=== PATIENT | male | born 1980 | race African-American/Black ===

== ENCOUNTER 2019-05-23 15:22 | Emergency (ER) | payer OTHER ==
[2019-05-23 15:28] VITALS: BP 103/50; PULSE 74; RESP 18; TEMP 99.2
--- NOTE | 2019-05-23 15:35 | ED ---
Lower Extremity Injury HPI - General Chief Complaint: Extremity Injury, Lower Stated Complaint: Foot injury Time Seen by Provider: 05/23/19 15:31 Source: patient, RN notes reviewed Mode of arrival: ambulatory Limitations: no limitations - History of Present Illness Initial Comments: 38-year-old male presents emergency Department chief complaint of left foot pain. Patient states that he was moving some stuff and states P1 his left foot. Patient states that dropped from approximately couple feet up off the ground. Patient complains of severe left foot pain he was able to urinate but states it's very sore. Patient went to swelling no prior fractures no paresthesias. - Related Data Allergies Allergy/AdvReac Type Severity Reaction Status Date / Time No Known Allergies Allergy Verified 05/23/19 15:28 Review of Systems ROS Statement: Those systems with pertinent positive or pertinent negative responses have been documented in the HPI. ROS Other: All systems not noted in ROS Statement are negative. Past Medical History Past Medical History: No Reported History History of Any Multi-Drug Resistant Organisms: None Reported Past Surgical History: No Surgical Hx Reported Past Psychological History: No Psychological Hx Reported Smoking Status: Never smoker Past Alcohol Use History: None Reported Past Drug Use History: None Reported General Exam Limitations: no limitations General appearance: alert, in no apparent distress Head exam: Present: atraumatic, normocephalic, normal inspection Respiratory exam: Present: normal lung sounds bilaterally. Absent: respiratory distress, wheezes, rales, rhonchi, stridor Cardiovascular Exam: Present: regular rate, normal rhythm, normal heart sounds. Absent: systolic murmur, diastolic murmur, rubs, gallop, clicks Extremities exam: Present: other (Left foot there is moderate swelling just proximal to the first and second digit there is a small ecchymotic area, neurovascular intact no proximal foot or ankle tenderness) Skin exam: Present: warm, dry, intact, normal color. Absent: rash Course Vital Signs 05/23/19 15:26 Temperature 99.2 F Pulse Rate 74 Respiratory 18 Rate Blood Pressure 103/50 O2 Sat by Pulse 98 Oximetry Medical Decision Making - Medical Decision Making 38-year-old male presented for left foot injury. X-rays obtained no acute fracture. Patient has a left foot contusion. Disposition Clinical Impression: Contusion of left foot Disposition: HOME SELF-CARE Condition: Stable Instructions (If sedation given, give patient instructions): Foot Contusion (ED) Additional Instructions: Please return to the Emergency Department if symptoms worsen or any other concerns. Is patient prescribed a controlled substance at d/c from ED?: No Referrals: Regis Delcid DO [Primary Care Provider] - 1-2 days Time of Disposition: 15:54
--- NOTE | 2019-05-23 15:50 | XR ---
EXAMINATION TYPE: XR foot complete LT DATE OF EXAM: 05/23/2019 COMPARISON: NONE HISTORY: Foot pain TECHNIQUE: 3 views FINDINGS: Metatarsals appear intact. I see no fracture nor dislocation. Joint spaces are normal. IMPRESSION: Negative left foot exam.
[2019-05-23] MEDS ORDERED: ACET/COD 300 MG/30 MG STARTER PACK 6 TAB BTL PO STA (15:54)
== END 2019-05-23 16:18 | disposition home or self-care (01) ==
LOC: EC 15:22
DX: S90.32XA Contusion of left foot, initial encounter (principal); W20.8XXA Other cause of strike by thrown, projected or falling object, initial encounter; Y92.69 Other specified industrial and construction area as the place of occurrence of the external cause; Y99.0 Civilian activity done for income or pay
CPT/HCPCS: 99283

== ENCOUNTER → 2019-05-26 | Outpatient (CLI) | payer OTHER ==
--- NOTE | 2019-05-26 18:46 | CT ---
EXAMINATION TYPE: CT foot LT wo con 3-D reconstruction renderings DATE OF EXAM: 05/26/2019 COMPARISON: Radiographs 05/23/2019 at 3:43 PM HISTORY: Contusion of LT foot. PT dropped 1000 lb pew on foot. Laceration between big toe. Pt able to apply some weight when walking CT DLP: 434.90 mGycm Automated exposure control for dose reduction was used. FINDINGS: The bones and joints and soft tissues are unremarkable. IMPRESSION: NEGATIVE EXAMINATION.
== END | disposition home or self-care (01) ==
LOC: RADCTMAIN 17:01
PROVIDERS: ATTEND Emergency Medicine
DX: S90.32XA Contusion of left foot, initial encounter (principal)

== ENCOUNTER → 2019-08-26 | Outpatient (CLI) | payer OTHER ==
--- NOTE | 2019-08-26 14:02 | XR ---
EXAMINATION TYPE: XR hand complete RT DATE OF EXAM: 08/26/2019 CLINICAL HISTORY: Pain and swelling since fall injury 2 weeks ago. TECHNIQUE: Frontal, lateral and oblique images of the right hand are obtained. COMPARISON: None. FINDINGS: There is no acute fracture/dislocation evident in the right hand. Subacute or chronic frac ture distal fourth and fifth metacarpal with radial and volar angulation. The joint spaces in the rig ht hand appear within normal limits. Some moderate soft tissue swelling over fifth metacarpal dorsal surface is noted. IMPRESSION: As above.
== END | disposition home or self-care (01) ==
LOC: RADXRMAIN 13:32
PROVIDERS: ATTEND Nurse Practitioner Family
DX: S69.91XA Unspecified injury of right wrist, hand and finger(s), initial encounter (principal)

== ENCOUNTER 2020-01-22 10:32 | Emergency (ER) | payer OTHER ==
[2020-01-22 10:40] VITALS: RESP 18; TEMP 98
[2020-01-22] MEDS ORDERED: SODIUM CHLORIDE 0.9% 1,000 ML IV STA (10:54)
[2020-01-22] MEDS ORDERED: FUROSEMIDE 10 MG/ML 4 ML VIAL IV STA (11:01)
[2020-01-22 11:32] LABS: Basophils % (A) 1 %; Eosinophils # (A) 0.1 k/uL (0-0.7); Eosinophils % (A) 2 %; HCT 42.5 % (39.0-53.0); HGB 14.4 gm/dL (13.0-17.5); Lymphocytes # (A) 1.7 k/uL (1.0-4.8); Lymphocytes % (A) 47 %; MCH 31.5 pg (25.0-35.0); MCV 92.8 fL (80.0-100.0); Mean Platelet Volume 8.1; Monocytes # (A) 0.2 k/uL (0-1.0); Monocytes % (A) 6 %; Neutrophils # (A) 1.5 k/uL (1.3-7.7); Neutrophils % (A) 42 %; Platelet Count 221 k/uL (150-450); RBC 4.58 m/uL (4.30-5.90); RDW 13.1 % (11.5-15.5); WBC 3.6 k/uL (3.8-10.6)
--- NOTE | 2020-01-22 11:32 | ED ---
General Adult HPI - General Chief complaint: Syncope Stated complaint: syncope Time Seen by Provider: 01/22/20 10:45 Source: patient, RN notes reviewed Mode of arrival: wheelchair Limitations: no limitations - History of Present Illness Initial comments: Patient is a pleasant 39-year-old male presenting to the emergency department following syncopal episode. Patient has felt lightheaded yesterday. Patient started a new job at [employer] and was lifting wood and other items. Patient states he had several episodes of lightheadedness with bending over picking up objects. Patient states this then resolved. Patient states this morning after he got up and started moving around he again felt lightheaded however this time passed out. Patient did not get injured. Patient is unclear how long he was passed out for. No headache or confusion. No speech problems. No lower arm or leg weakness. No chest pain or dyspnea or palpitations. No abdominal pain. Patient has chronic lower back pain that has been present for many years and is unchanged. Patient is unable to say how many years has been present for however states it has been a long time. - Related Data Previous Rx's Medication Instructions Recorded Ibuprofen [Motrin] 600 mg PO Q6HR PRN #20 tab 01/22/20 Allergies Allergy/AdvReac Type Severity Reaction Status Date / Time No Known Allergies Allergy Verified 01/22/20 12:13 Review of Systems ROS Statement: Those systems with pertinent positive or pertinent negative responses have been documented in the HPI. ROS Other: All systems not noted in ROS Statement are negative. Constitutional: Denies: fever Eyes: Denies: eye pain ENT: Denies: ear pain Respiratory: Denies: cough, dyspnea Cardiovascular: Denies: chest pain, palpitations Endocrine: Denies: fatigue Gastrointestinal: Denies: abdominal pain, nausea, vomiting Genitourinary: Denies: dysuria Musculoskeletal: Reports: as per HPI Neurological: Denies: headache, weakness, confusion Past Medical History Past Medical History: No Reported History History of Any Multi-Drug Resistant Organisms: None Reported Past Surgical History: No Surgical Hx Reported Past Psychological History: No Psychological Hx Reported Smoking Status: Never smoker Past Alcohol Use History: None Reported Past Drug Use History: None Reported General Exam Limitations: no limitations General appearance: alert, in no apparent distress Head exam: Present: normocephalic Eye exam: Present: normal appearance, PERRL ENT exam: Present: normal oropharynx Neck exam: Present: normal inspection Respiratory exam: Present: normal lung sounds bilaterally Cardiovascular Exam: Present: regular rate, normal rhythm Expanded Peripheral pulses: 2+: Radial (R), Radial (L), Dorsalis Pedis (R), Dorsalis Pedis (L) GI/Abdominal exam: Present: soft. Absent: distended, tenderness, guarding, rebound, rigid, pulsatile mass Extremities exam: Present: normal inspection. Absent: pedal edema, calf tenderness Neurological exam: Present: alert, oriented X3, CN II-XII intact. Absent: motor sensory deficit Expanded Neurological exam: Present: protecting the airway Speech: Present: fluid speech Motor strength exam: RUE: 5, LUE: 5, RLE: 5, LLE: 5 Eye Response: (4) open spontaneously Motor Response: (6) obeys commands Verbal Response: (5) oriented Psychiatric exam: Present: normal affect, normal mood Skin exam: Present: normal color Course Vital Signs 01/22/20 01/22/20 10:36 11:21 Temperature 98 F Pulse Rate 81 Pulse Rate [ 70 Sitting] Pulse Rate [ 70 Standing] Pulse Rate [ 64 Supine] Respiratory 18 Rate Blood Pressure 116/65 Blood Pressure 125/80 [Sitting] Blood Pressure 106/65 [Standing] Blood Pressure 110/64 [Supine] O2 Sat by Pulse 100 Oximetry - Reevaluation(s) Reevaluation #1: 01/22/20 12:28 Negative Wells score EKG Findings - EKG Comments: EKG Findings:: Normal sinus rhythm at 70. TX 168. QRS 118. QT 378. QTC 408. Normal axis. Nonspecific intraventricular reduction delay. No acute ST change. Medical Decision Making - Medical Decision Making Patient reevaluated and resting comfortably in bed, symptom-free. Patient updated on results. Patient is offered admission however refuses. Patient states he will follow-up with primary care physician as advised. - Lab Data Result diagrams: 01/22/20 11:08 01/22/20 11:08 Lab Results 01/22/20 01/22/20 01/22/20 Range/Units 11:08 11:08 11:08 WBC 3.6 L (3.8-10.6) k/uL RBC 4.58 (4.30-5.90) m/uL Hgb 14.4 (13.0-17.5) gm/dL Hct 42.5 (39.0-53.0) % MCV 92.8 (80.0-100.0) fL MCH 31.5 (25.0-35.0) pg MCHC 34.0 (31.0-37.0) g/dL RDW 13.1 (11.5-15.5) % Plt Count 221 (150-450) k/uL Neutrophils % 42 % Lymphocytes % 47 % Monocytes % 6 % Eosinophils % 2 % Basophils % 1 % Neutrophils # 1.5 (1.3-7.7) k/uL Lymphocytes # 1.7 (1.0-4.8) k/uL Monocytes # 0.2 (0-1.0) k/uL Eosinophils # 0.1 (0-0.7) k/uL Basophils # 0.0 (0-0.2) k/uL PT 11.4 (9.0-12.0) sec INR 1.1 (<1.2) APTT 21.7 L (22.0-30.0) sec Sodium 140 (137-145) mmol/L Potassium 4.3 (3.5-5.1) mmol/L Chloride 106 (98-107) mmol/L Carbon Dioxide 28 (22-30) mmol/L Anion Gap 6 mmol/L BUN 10 (9-20) mg/dL Creatinine 0.84 (0.66-1.25) mg/dL Est GFR (CKD-EPI)AfAm >90 (>60 ml/min/1.73 sqM) Est GFR (CKD-EPI)NonAf >90 (>60 ml/min/1.73 sqM) Glucose 93 (74-99) mg/dL Calcium 9.2 (8.4-10.2) mg/dL Magnesium 2.0 (1.6-2.3) mg/dL Total Bilirubin 0.6 (0.2-1.3) mg/dL AST 34 (17-59) U/L ALT 26 (4-49) U/L Alkaline Phosphatase 57 (38-126) U/L Creatine Kinase 285 H (55-170) U/L Troponin I (0.000-0.034) ng/mL Total Protein 6.9 (6.3-8.2) g/dL Albumin 4.1 (3.5-5.0) g/dL 01/22/20 Range/Units 11:08 WBC (3.8-10.6) k/uL RBC (4.30-5.90) m/uL Hgb (13.0-17.5) gm/dL Hct (39.0-53.0) % MCV (80.0-100.0) fL MCH (25.0-35.0) pg MCHC (31.0-37.0) g/dL RDW (11.5-15.5) % Plt Count (150-450) k/uL Neutrophils % % Lymphocytes % % Monocytes % % Eosinophils % % Basophils % % Neutrophils # (1.3-7.7) k/uL Lymphocytes # (1.0-4.8) k/uL Monocytes # (0-1.0) k/uL Eosinophils # (0-0.7) k/uL Basophils # (0-0.2) k/uL PT (9.0-12.0) sec INR (<1.2) APTT (22.0-30.0) sec Sodium (137-145) mmol/L Potassium (3.5-5.1) mmol/L Chloride (98-107) mmol/L Carbon Dioxide (22-30) mmol/L Anion Gap mmol/L BUN (9-20) mg/dL Creatinine (0.66-1.25) mg/dL Est GFR (CKD-EPI)AfAm (>60 ml/min/1.73 sqM) Est GFR (CKD-EPI)NonAf (>60 ml/min/1.73 sqM) Glucose (74-99) mg/dL Calcium (8.4-10.2) mg/dL Magnesium (1.6-2.3) mg/dL Total Bilirubin (0.2-1.3) mg/dL AST (17-59) U/L ALT (4-49) U/L Alkaline Phosphatase (38-126) U/L Creatine Kinase (55-170) U/L Troponin I <0.012 (0.000-0.034) ng/mL Total Protein (6.3-8.2) g/dL Albumin (3.5-5.0) g/dL - Radiology Data Radiology results: report reviewed (Ultrasound of the abdominal aorta shows no evidence of aneurysm. Computed tomography scan of the brain reveals no acute intercranial abnormality.), image reviewed (Two-view chest x-ray shows nodule right mid to lower lung. Otherwise no acute abnormality.) Disposition Clinical Impression: Syncope Disposition: HOME SELF-CARE Condition: Stable Instructions (If sedation given, give patient instructions): Syncope (ED) Additional Instructions: Please follow-up with primary care physician in the next day or 2 for recheck. Please have primary care physician review chart. Amer care physician will also need to get repeat chest x-ray to evaluate for possible nodule. Return for passing out, weakness or confusion, chest pain or difficulty breathing, worsening or change in symptoms or other concerns. Prescription sent to [facility] on [address] Prescriptions: Ibuprofen [Motrin] 600 mg PO Q6HR PRN #20 tab PRN Reason: Pain Is patient prescribed a controlled substance at d/c from ED?: No Referrals: Regis Delcid DO [Primary Care Provider] - 1-2 days Time of Disposition: 12:42
--- NOTE | 2020-01-22 11:41 | XR ---
EXAMINATION TYPE: XR chest 2V DATE OF EXAM: 01/22/2020 COMPARISON: None HISTORY: 39-year-old male with syncope TECHNIQUE: PA and lateral views FINDINGS: The cardiomediastinal silhouette, aorta, and pulmonary vasculature are within normal limits. Subtle n odular density right mid to lower lung, suspect calcified granuloma, this can be reassessed at a foll ow-up exam. Otherwise, no consolidation or pleural effusion. IMPRESSION: 1. Nodular density at the right mid to lower lung, suspect a calcified granuloma. Recommend 2-3 month follow-up radiograph to reassess. 2. Otherwise, no acute cardiopulmonary process.
--- NOTE | 2020-01-22 11:43 | CT ---
EXAMINATION TYPE: CT brain wo con DATE OF EXAM: 01/22/2020 COMPARISON: None HISTORY: 39-year-old male syncope TECHNIQUE: Examination was done in axial plane without intravenous contrast. Coronal and sagittal r econstructions performed. CT DLP: 1158.4 mGycm Automated exposure control for dose reduction was used. FINDINGS: There is no evidence of acute intracranial hemorrhage, acute ischemic changes, mass, mass-effect, or extra-axial fluid collection. There is no effacement of cerebral sulci or basal subarachnoid cister ns. There is no hydrocephalus. There is no midline shift. Whitney-white matter distinction is preserv ed. Paranasal sinuses and mastoid air cells well pneumatized. Orbits and globes are intact. IMPRESSION: No acute intracranial abnormality seen.
[2020-01-22 11:48] LABS: ALT 26 U/L (4-49); AST 34 U/L (17-59); African American GFR (CKD) >90 (>60 ml/min/1.73 sqM); Albumin 4.1 g/dL (3.5-5.0); Alkaline Phosphatase 57 U/L (38-126); Anion Gap 6 mmol/L; Blood Urea Nitrogen 10 mg/dL (9-20); Calcium 9.2 mg/dL (8.4-10.2); Carbon Dioxide 28 mmol/L (22-30); Chloride 106 mmol/L (98-107); Creatine Kinase 285 U/L (55-170); Glucose 93 mg/dL (74-99); Non-African American GFR(CKD) >90 (>60 ml/min/1.73 sqM); Potassium 4.3 mmol/L (3.5-5.1); Sodium 140 mmol/L (137-145); Total Bilirubin 0.6 mg/dL (0.2-1.3); Total Protein 6.9 g/dL (6.3-8.2)
[2020-01-22 11:49] LABS: INR 1.1 (<1.2); Prothrombin Time 11.4 sec (9.0-12.0)
[2020-01-22 11:58] LABS: Partial Thromboplastin Time 21.7 sec (22.0-30.0)
--- NOTE | 2020-01-22 12:10 | US ---
EXAMINATION TYPE: US duplex aorta DATE OF EXAM: 01/22/2020 COMPARISON: NONE CLINICAL HISTORY: syncope, evaluate aorta. dizziness EXAM MEASUREMENTS: Abdominal Aorta: Proximal: 1.8 x 1.4cm Mid: 1.6 x 1.5cm Distal: 2.0 x 1.5cm Bifurcation: RT: 1.1 x 1.1cm LT: 1.0 x 1.2cm No evidence of AAA at this time IMPRESSION: No evidence for abdominal aortic aneurysm.
[2020-01-22] MEDS ORDERED: ACET/COD 300 MG/30 MG STARTER PACK 6 TAB BTL PO STA (12:44)
[2020-01-22 13:10] VITALS: BP 98/64; PULSE 72
[2020-01-22 13:21] LABS: Appearance,Urine Clear (Clear); Bilirubin,Urine Negative (Negative); Blood,Urine Negative (Negative); Color,Urine Light Yellow; Glucose,Urine (UA) Negative (Negative); Ketones,Urine Negative (Negative); Leukocyte Esterase,Urine Negative (Negative); Nitrite,Urine Negative (Negative); Protein,Urine Negative (Negative); Specific Gravity,Urine 1.006 (1.001-1.035); Urobilinogen,Urine <2.0 mg/dL (<2.0)
== END 2020-01-22 13:09 | disposition home or self-care (01) ==
LOC: EC 10:32
DX: R55 Syncope and collapse (principal); G89.29 Other chronic pain; M54.5 Low back pain; Z53.29 Procedure and treatment not carried out because of patient's decision for other reasons; Z53.8 Procedure and treatment not carried out for other reasons
CPT/HCPCS: 36415; 70450; 71046; 80053; 81003; 82550; 83735; 84484; 85025; 85610; 85730; 93005; 93979; 96360; 99284

== ENCOUNTER 2020-01-28 12:53 | Emergency (ER) | payer OTHER ==
[2020-01-28 13:06] VITALS: RESP 18; TEMP 98
[2020-01-28] MEDS ORDERED: KETOROLAC 60 MG/2 ML VIAL IM STA (14:09)
--- NOTE | 2020-01-28 14:31 | XR ---
EXAMINATION TYPE: XR lumbosacral spine min 4V DATE OF EXAM: 01/28/2020 CLINICAL HISTORY: Low back pain. TECHNIQUE: Frontal, lateral, and oblique images of the lumbar spine are obtained. COMPARISON: None FINDINGS: There are 5 lumbar type vertebral bodies identified. The lumbar spine shows straightened alignment on lateral images without evidence of acute fracture or dislocation. Vertebral body heights and disk space heights are within normal limits. Possible tiny nonobstructing bilateral renal calcul i noted on frontal view. IMPRESSION: As above.
--- NOTE | 2020-01-28 14:49 | ED ---
General Adult HPI - General Chief complaint: Dizziness Stated complaint: Back pain Time Seen by Provider: 01/28/20 13:05 Source: patient, RN notes reviewed, old records reviewed Mode of arrival: ambulatory Limitations: no limitations - History of Present Illness Initial comments: This is a 39-year-old male who presents emergency Department complaining of lower back pain. Patient states it started 7 years ago but got much worse about 3 years ago. Patient states lately it has been acting up a lot more because he's been doing a job where he is doing a lot of lifting at work. Patient states he bends over and lift something heavy he gets a sharp pain in his lower back it's excruciating and then he gets a little lightheaded for a few seconds and then as the pain goes away lightheadedness resolved in just a few seconds. Patient denies any numbness weakness. Patient denies any urinary incontinence or urinary retention. Patient denies any radiation of pain down his legs. Patient denies any blunt trauma or any recent injury that he knows of. Patient states he does still lift weights and does do squats which is how he hurt his back 3 years ago. - Related Data Previous Rx's Medication Instructions Recorded Ibuprofen [Motrin] 600 mg PO Q6HR PRN #20 tab 01/28/20 Allergies Allergy/AdvReac Type Severity Reaction Status Date / Time No Known Allergies Allergy Verified 01/28/20 14:35 Review of Systems ROS Statement: Those systems with pertinent positive or pertinent negative responses have been documented in the HPI. ROS Other: All systems not noted in ROS Statement are negative. Past Medical History Past Medical History: No Reported History History of Any Multi-Drug Resistant Organisms: None Reported Past Surgical History: No Surgical Hx Reported Past Psychological History: No Psychological Hx Reported Smoking Status: Never smoker Past Alcohol Use History: None Reported Past Drug Use History: None Reported General Exam - General Exam Comments Initial Comments: GENERAL: Patient is well-developed and well-nourished. Patient is nontoxic and well- hydrated and is in mild distress. ENT: Neck has full range of motion without eliciting any pain. EYES: The sclera were anicteric and conjunctiva were pink and moist. Extraocular movements were intact and pupils were equal round and reactive to light. Eyelids were unremarkable. SKIN: Skin is clear with no lesions or rashes and otherwise unremarkable. NEUROLOGIC: Patient is alert and oriented x3. Cranial nerves II through XII are grossly intact. Motor and sensory are also intact. Normal speech, volume and content. Symmetrical smile. MUSCULOSKELETAL: Normal extremities with adequate strength and full range of motion. Straight leg test is normal bilaterally LYMPHATICS: No significant lymphadenopathy is noted PSYCHIATRIC: Normal psychiatric evaluation. Limitations: no limitations Course Vital Signs 01/28/20 13:03 Temperature 98 F Pulse Rate 72 Respiratory 18 Rate Blood Pressure 107/66 O2 Sat by Pulse 100 Oximetry Medical Decision Making - Medical Decision Making EKG shows normal sinus rhythm at 70 bpm NJ interval 168 QRSs 112 QT interval 390 QTC is 421. Patient's EKG shows no ST segment elevation or depression. Patient orthostatics were negative. Lumbosacral spine was normal. Disposition Clinical Impression: Lumbar strain Disposition: HOME SELF-CARE Condition: Good Instructions (If sedation given, give patient instructions): Low Back Strain (ED), Lower Back Exercises (ED) Prescriptions: Ibuprofen [Motrin] 600 mg PO Q6HR PRN #20 tab PRN Reason: For pain Is patient prescribed a controlled substance at d/c from ED?: No Referrals: Regis Delcid DO [Primary Care Provider] - 1-2 days Time of Disposition: 14:48
[2020-01-28 14:57] VITALS: BP 105/59; PULSE 57
== END 2020-01-28 15:00 | disposition home or self-care (01) ==
LOC: EC 12:53
DX: S39.012A Strain of muscle, fascia and tendon of lower back, initial encounter (principal); X58.XXXA Exposure to other specified factors, initial encounter
CPT/HCPCS: 72110; 99284; 96372; J1885

== ENCOUNTER → 2020-03-28 | Outpatient (CLI) | payer OTHER ==
--- NOTE | 2020-04-29 18:15 | EM ---
EVENT MONITOR THIRTY-DAY EVENT MONITOR REPORT: Thirty-day event monitor was reviewed. There were a few recordings noted. Most of these were sinus rhythm. There is no evidence of any abnormal rhythms. There were at least two obvious strips given. One was from 03/28/2020 at 1:48 p.m., the other one at 1:52 p.m., and both of these revealed sinus mechanism without any abnormal rhythms. FINAL IMPRESSION: Thirty-day event monitor was provided. Only a few strips were noted. Rhythm was sinus. No significant abnormality noted. No symptoms reported. MMODL / IJN: [id number] /
== END | disposition home or self-care (01) ==
LOC: RADECHMAIN 13:01
PROVIDERS: ATTEND Family Medicine
DX: R55 Syncope and collapse (principal)
CPT/HCPCS: 93270

== ENCOUNTER 2020-04-05 20:32 | Emergency (ER) | payer OTHER ==
[2020-04-05 20:45] VITALS: BP 107/59; PULSE 76; RESP 18; TEMP 98.8
[2020-04-05] MEDS ORDERED: ACET/COD 300 MG/30 MG STARTER PACK 6 TAB BTL PO STA (21:12)
[2020-04-05] MEDS ORDERED: KETOROLAC 60 MG/2 ML VIAL IM STA (21:12)
[2020-04-05] MEDS ORDERED: LIDOCAINE 5% PATCH TOPICAL SCH (21:15)
--- NOTE | 2020-04-05 21:39 | XR ---
EXAMINATION TYPE: XR lumbar spine 2 or 3V DATE OF EXAM: 04/05/2020 COMPARISON: NONE HISTORY: Back pain TECHNIQUE: 3 views FINDINGS: Vertebra have normal spacing and alignment. Posterior elements are intact. Sacroiliac joint s appear normal. IMPRESSION: Normal lumbar spine.
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
== END 2020-04-05 21:59 | disposition home or self-care (01) ==
LOC: EC 20:32
DX: M54.5 Low back pain (principal); G89.29 Other chronic pain
CPT/HCPCS: 72100; 99283; 96372; J1885

== ENCOUNTER 2020-05-07 13:35 | Emergency (ER) | payer OTHER ==
[2020-05-07 13:50] VITALS: BP 107/65; PULSE 80; RESP 18; TEMP 98.3
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
[2020-05-07] MEDS ORDERED: BACITRACIN OINT 1 EACH PACKET TOPICAL ONE (14:43)
== END 2020-05-07 14:56 | disposition home or self-care (01) ==
LOC: EC 13:35
DX: T20.27XA Burn of second degree of neck, initial encounter (principal); X08.8XXA Exposure to other specified smoke, fire and flames, initial encounter
CPT/HCPCS: 99283

== ENCOUNTER 2020-07-18 13:25 | Emergency (ER) | payer OTHER ==
[2020-07-18 13:52] VITALS: BP 105/68; PULSE 101; RESP 18; TEMP 98.8
[2020-07-18] MEDS ORDERED: SODIUM CHLORIDE 0.9% 1,000 ML IV ONE (14:08)
--- NOTE | 2020-07-18 14:36 | ED ---
General Adult HPI - General Chief complaint: Recheck/Abnormal Lab/Rx Stated complaint: Not Feeling Well Time Seen by Provider: 07/18/20 13:58 Source: patient Mode of arrival: ambulatory Limitations: no limitations - History of Present Illness Initial comments: 40-year-old male patient presents to the emergency department today for evaluation of fatigue and weakness. Patient states for the last 6 days he has been having body ahces, feeling fatigued, and week. States that he doesn't feel he has any strength. States his been very tired. He denies any fevers or chills. Denies chest pain or shortness of breath. Denies any constipation, diarrhea, or difficulty with urination. Denies ever feeling this way in the past. Denies starting or stopping any medications. Denies any changes to his diet or lifestyle. Denies any recent injuries. Denies any sick contacts. Patient denies any recent rash, cough, abdominal pain, back pain, numbness, tin gling, dizziness, hematuria, dysuria, urinary urgency, urinary frequency, headache, visual changes, or any other complaints. - Related Data Previous Rx's Medication Instructions Recorded Bacitracin/Polymyx Oint 1 applic TOPICAL BID 5 Days #30 gm 05/07/20 [Polysporin] Allergies Allergy/AdvReac Type Severity Reaction Status Date / Time No Known Allergies Allergy Verified 07/18/20 13:52 Review of Systems ROS Statement: Those systems with pertinent positive or pertinent negative responses have been documented in the HPI. ROS Other: All systems not noted in ROS Statement are negative. Past Medical History Past Medical History: No Reported History Additional Past Medical History / Comment(s): back pain History of Any Multi-Drug Resistant Organisms: None Reported Past Surgical History: No Surgical Hx Reported Past Psychological History: No Psychological Hx Reported Past Alcohol Use History: None Reported Past Drug Use History: None Reported General Exam Limitations: no limitations General appearance: alert, in no apparent distress, other (This is a well- developed, well-nourished adult male patient in no acute distress. Vital signs upon presentation are temperature 98.8F, pulse 101, respirations 18, blood pressure 105/68, pulse ox 99% on room air.) Eye exam: Present: normal appearance, PERRL, EOMI. Absent: scleral icterus, conjunctival injection, periorbital swelling ENT exam: Present: normal exam, normal oropharynx, mucous membranes moist Respiratory exam: Present: normal lung sounds bilaterally. Absent: respiratory distress, wheezes, rales, rhonchi, stridor Cardiovascular Exam: Present: regular rate, normal rhythm, normal heart sounds. Absent: systolic murmur, diastolic murmur, rubs, gallop, clicks GI/Abdominal exam: Present: soft, normal bowel sounds. Absent: distended, tenderness, guarding, rebound, rigid Neurological exam: Present: alert, oriented X3, CN II-XII intact Expanded Speech: Present: fluid speech Motor strength exam: RUE: 5, LUE: 5, RLE: 5, LLE: 5 Psychiatric exam: Present: normal affect, normal mood Skin exam: Present: warm, dry, intact, normal color. Absent: rash Course Vital Signs 07/18/20 13:48 Temperature 98.8 F Pulse Rate 101 H Respiratory 18 Rate Blood Pressure 105/68 O2 Sat by Pulse 99 Oximetry Medical Decision Making - Medical Decision Making 40-year-old male patient presents to the emergency department today for evaluation of body aches, fatigue, weakness. The patient states symptoms have been present for the past 6 days. Physical examination was relatively unremarkable. He is neurologically intact with no focal deficits. I did discuss with him we were going to obtain labs, give IV fluids, and get a COVID- 19 swab. When nursing staff went in to initiate his IV he agreed to have the Covid swab performed but declined having IV or lab work. States that he wanted to wait for his Covid results and then if necessary come back for other testing. I did discuss with him that we were unable to determine what might be causing his symptoms without further evaluation. I did discuss that he could worsen or have a change in his condition. He verbalizes understanding and agreed to sign AMA form. He'll be discharged with instructions to follow-up with his primary care physician for recheck in 1-2 days. Return parameters were discussed. He verbalizes understanding. Disposition Clinical Impression: Weakness, Fatigue Disposition: Left Against Medical Advice Condition: Undetermined Referrals: Regis Delcid DO [Primary Care Provider] - 1-2 days Time of Disposition: 14:36
== END 2020-07-18 14:50 | disposition left against medical advice (07) ==
LOC: EC 13:25
DX: R53.83 Other fatigue (principal); R53.1 Weakness; Z53.29 Procedure and treatment not carried out because of patient's decision for other reasons
CPT/HCPCS: 99283; U0003

== ENCOUNTER 2020-09-04 13:29 | Emergency (ER) | payer OTHER ==
[2020-09-04 13:37] VITALS: BP 118/54; PULSE 65; RESP 18; TEMP 98
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
== END 2020-09-04 13:51 | disposition home or self-care (01) ==
LOC: EC 13:29
DX: Z02.89 Encounter for other administrative examinations (principal)
CPT/HCPCS: 99281

== ENCOUNTER 2020-12-19 15:47 | Emergency (ER) | payer OTHER ==
[2020-12-19 15:51] VITALS: RESP 20; TEMP 98
--- NOTE | 2020-12-19 16:22 | XR ---
EXAMINATION TYPE: XR hand limited LT DATE OF EXAM: 12/19/2020 COMPARISON: None HISTORY: Pain along middle finger TECHNIQUE: 2 view left hand FINDINGS: There is a subtle fragment of osseous bone adjacent to the distal portion metacarpal third digit near the joint space. Small avulsion could be considered. Correlate with the location of the pa tient's pain. No additional area suspicious for fractures evident. Joint spaces are preserved. The soft tissues gautam ear normal. IMPRESSION: 1. Tiny avulsion at the distal ulnar aspect of the third metacarpal should be considered.
[2020-12-19] MEDS ORDERED: traMADol 50 MG STARTER PACK 3 TAB BTL PO STA (16:50)
--- NOTE | 2020-12-19 16:51 | ED ---
Extremity Problem HPI - General Chief complaint: Extremity Problem,Nontraumatic Stated complaint: Finger pain Time Seen by Provider: 12/19/20 15:59 Source: patient Mode of arrival: ambulatory Limitations: no limitations - History of Present Illness Initial comments: Patient is a 40-year-old male presenting to the emergency Department with complaints of left hand pain for the past 3 days. Patient states he feels like he picked up something very heavy and bent his finger backwards. He is complaining of pain on the palmar aspect of his left middle finger. He states it hurts to extend the area and hurts along his palm. He denies any previous fractures or surgeries to his left hand. He is right-hand dominant. He has no further complaints at this time. - Related Data Previous Rx's Medication Instructions Recorded Bacitracin/Polymyx Oint 1 applic TOPICAL BID 5 Days #30 gm 05/07/20 [Polysporin] Allergies Allergy/AdvReac Type Severity Reaction Status Date / Time No Known Allergies Allergy Verified 12/19/20 15:51 Review of Systems ROS Statement: Those systems with pertinent positive or pertinent negative responses have been documented in the HPI. ROS Other: All systems not noted in ROS Statement are negative. Past Medical History Past Medical History: No Reported History Additional Past Medical History / Comment(s): back pain History of Any Multi-Drug Resistant Organisms: None Reported Past Surgical History: No Surgical Hx Reported Past Psychological History: No Psychological Hx Reported Smoking Status: Never smoker Past Alcohol Use History: None Reported Past Drug Use History: None Reported General Exam - General Exam Comments Initial Comments: GENERAL: Patient is well-developed and well-nourished. Patient is nontoxic and in no acute distress. HEAD: Atraumatic, normocephalic. EYES: Pupils equal round and reactive to light, extraocular movements intact, sclera anicteric, conjunctiva are normal. Eyelids were unremarkable. ENT: Nares patent, oropharynx clear without exudates. Moist mucous membranes. NECK: Normal range of motion, supple without lymphadenopathy or JVD. LUNGS: Unlabored respirations. Breath sounds clear to auscultation bilaterally and equal. No wheezes rales or rhonchi. HEART: Regular rate and rhythm without murmurs, rubs or gallops. ABDOMEN: Soft, nontender, normoactive bowel sounds. No guarding, no rebound. No masses appreciated. : Deferred MUSCULOSKELETAL: Patient has pain along palpation of the palmar aspect along the left third metacarpal. There is no obvious swelling or deformity. He has does have full flexion, increased pain with extension. Rest intact. No other areas of pain in his left hand. No clubbing or cyanosis. NEUROLOGICAL: Patient is alert and oriented x 3. Symmetrical smile. Normal speech, normal gait. PSYCH: Normal mood, normal affect. SKIN: Warm, Dry, normal turgor, no rashes or lesions noted. Limitations: no limitations Course Vital Signs 12/19/20 12/19/20 15:49 16:59 Temperature 98 F 98 F Pulse Rate 108 H 101 H Respiratory 20 20 Rate Blood Pressure 112/68 114/72 O2 Sat by Pulse 99 99 Oximetry Procedures - Orthopedic Splinting/Casting Injury #1 Side: left Upper Extremity Injury Location: hand Upper Extremity Immobilizer: posterior splint, Luis wrap, synthetic pre-padded splint Medical Decision Making - Medical Decision Making Patient is a 40-year-old male here with pain along the palmar aspect of his left third metacarpal for the past 2 days. He thinks he might of hyperextended his finger. X-ray reveals a tiny avulsion of the distal ulnar aspect of the third metacarpal, no other acute fracture seen. Patient is painful in this area. I did apply a splint to his left hand. He will follow up with orthopedics symptoms persist. Patient is stable for discharge. Patient is in agreement with this plan of care. Return parameters were discussed with the patient and they verbalized understanding. Case discussed with Dr. Santa. Disposition Clinical Impression: Injury of flexor tendon of left hand Disposition: HOME SELF-CARE Condition: Stable Instructions (If sedation given, give patient instructions): Finger Sprain (ED) Additional Instructions: Please return to the Emergency Department if symptoms worsen or any other concerns. Recommend keeping splint in place until follow-up with orthopedics. Recommend Tylenol or Motrin for any discomfort. Ice to area. Is patient prescribed a controlled substance at d/c from ED?: No Referrals: Regis Delcid DO [Primary Care Provider] - 1-2 days Erik Cullen DO [Doctor of Osteopathic Medicine] - 1-2 days
[2020-12-19 17:00] VITALS: BP 114/72; PULSE 101
== END 2020-12-19 17:00 | disposition home or self-care (01) ==
LOC: EC 15:47
DX: S66.902A Unspecified injury of unspecified muscle, fascia and tendon at wrist and hand level, left hand, initial encounter (principal); X50.0XXA Overexertion from strenuous movement or load, initial encounter; Y93.F2 Activity, caregiving, lifting
CPT/HCPCS: 29125; 99283

== ENCOUNTER 2020-12-20 14:04 | Emergency (ER) | payer OTHER ==
[2020-12-20 14:53] VITALS: TEMP 97.8
[2020-12-20] MEDS ORDERED: KETOROLAC 15 MG/ML 1 ML VIAL IM STA (16:19)
[2020-12-20] MEDS ORDERED: ACET/COD 300 MG/30 MG STARTER PACK 6 TAB BTL PO STA (16:34)
--- NOTE | 2020-12-20 16:34 | ED ---
Upper Extremity HPI - General Chief Complaint: Extremity Injury, Upper Stated Complaint: Revisit, Lft hand pain Time Seen by Provider: 12/20/20 16:09 Source: patient, RN notes reviewed Mode of arrival: ambulatory Limitations: no limitations - History of Present Illness Initial Comments: Patient is a 40-year-old male that presents to emergency department with pain in his left hand. He was recently discharged emergency room yesterday with an avulsion fracture to the distal ulnar aspect of the third metacarpal. He was splinted and sent home with a starter pack of tramadol. He presents today she stating that he is not wanting any more x-rays or testing, he just wants help with the pains with sleep. He noted that he did try to call orthopedics but the ducts of his insurance. He noted that he did call his primary care to try to get on her recommendation or referral but did not get a response. Patient was in minimal pain but no distress sitting up in bed during exam and interview. She denied any new injury or trauma since yesterday chest pain shortness breath headache nausea vomiting diarrhea constipation fever fatigue chills. - Related Data Previous Rx's Medication Instructions Recorded Bacitracin/Polymyx Oint 1 applic TOPICAL BID 5 Days #30 gm 05/07/20 [Polysporin] Allergies Allergy/AdvReac Type Severity Reaction Status Date / Time No Known Allergies Allergy Verified 12/20/20 14:53 Review of Systems ROS Statement: Those systems with pertinent positive or pertinent negative responses have been documented in the HPI. ROS Other: All systems not noted in ROS Statement are negative. Past Medical History Past Medical History: No Reported History Additional Past Medical History / Comment(s): back pain History of Any Multi-Drug Resistant Organisms: None Reported Past Surgical History: No Surgical Hx Reported Past Psychological History: No Psychological Hx Reported Smoking Status: Never smoker Past Alcohol Use History: None Reported Past Drug Use History: None Reported General Exam Limitations: no limitations General appearance: alert, in no apparent distress Head exam: Present: atraumatic, normocephalic, normal inspection Eye exam: Present: normal appearance, PERRL, EOMI. Absent: scleral icterus, conjunctival injection, periorbital swelling ENT exam: Present: normal exam, mucous membranes moist Neck exam: Present: normal inspection. Absent: tenderness, meningismus, lymphadenopathy Respiratory exam: Present: normal lung sounds bilaterally. Absent: respiratory distress, wheezes, rales, rhonchi, stridor Cardiovascular Exam: Present: regular rate, normal rhythm, normal heart sounds. Absent: systolic murmur, diastolic murmur, rubs, gallop, clicks GI/Abdominal exam: Present: soft, normal bowel sounds. Absent: distended, tenderness, guarding, rebound, rigid Extremities exam: Present: normal inspection, full ROM, normal capillary refill, other (Left hand in splint.). Absent: tenderness, pedal edema, joint swelling, calf tenderness Neurological exam: Present: alert, oriented X3, CN II-XII intact Psychiatric exam: Present: normal affect, normal mood Skin exam: Present: warm, dry, intact, normal color. Absent: rash Course Vital Signs 12/20/20 14:51 Temperature 97.8 F Pulse Rate 88 Respiratory 18 Rate Blood Pressure 118/73 O2 Sat by Pulse 99 Oximetry Medical Decision Making - Medical Decision Making 40-year-old male with a avulsion fracture to the distal ulnar aspect of the left third metacarpal. 15 mg Toradol ordered. Case discussed with Dr. Carlson, patient discharged home with follow-up to orthopedics. Disposition Clinical Impression: Injury of flexor tendon of left hand Disposition: HOME SELF-CARE Condition: Stable Instructions (If sedation given, give patient instructions): Hand Fracture (ED) Additional Instructions: Please return to the Emergency Department if symptoms worsen or any other concerns. Follow-up with orthopedics as soon as possible. Follow-up with primary care 1-3 days, to get referral for orthopedics and pain medication. Tylenol 3 starter pack given, take as prescribed. Is patient prescribed a controlled substance at d/c from ED?: Yes When asked, does pt state using other controlled substances?: No If prescribed controlled substance>3 days was MAPS reviewed?: Prescribed <3 Days If opioid is for acute pain is fill amount 7 days or less?: Yes Referrals: Regis Delcid DO [Primary Care Provider] - 1-2 days Time of Disposition: 16:35
[2020-12-20 16:47] VITALS: BP 122/73; PULSE 74; RESP 16
== END 2020-12-20 16:47 | disposition home or self-care (01) ==
LOC: EC 14:04
DX: S62.303A Unspecified fracture of third metacarpal bone, left hand, initial encounter for closed fracture (principal); X58.XXXA Exposure to other specified factors, initial encounter
CPT/HCPCS: 99283; 96372; J1885

== ENCOUNTER 2020-12-26 13:23 | Emergency (ER) | payer OTHER ==
[2020-12-26 15:17] VITALS: BP 146/96; PULSE 92; RESP 18; TEMP 99
[2020-12-26] MEDS ORDERED: traMADol 50 MG STARTER PACK 3 TAB BTL PO STA (15:22)
[2020-12-26] MEDS ORDERED: ACET/COD 300 MG/30 MG STARTER PACK 6 TAB BTL PO STA (15:22)
--- NOTE | 2020-12-26 15:24 | ED ---
General Adult HPI - General Chief complaint: Extremity Injury, Upper Stated complaint: Revisit, hand pain Time Seen by Provider: 12/26/20 15:20 Source: patient, RN notes reviewed Mode of arrival: ambulatory Limitations: no limitations - History of Present Illness Initial comments: Patient is a 40-year-old male that presents emergency department with left hand pain. He was seen several times within the past couple weeks was diagnosed with an avulsion fracture. Orthopedics. He was given starter packs of Tylenol 3 and tramadol for pain maintenance interrogating with orthopedics. He states his orthopedist noted that he did not have an avulsion fracture but had a piece of glass from a previous accident that is pinching and causing pain. He notes that he can emergency room department he gets more pain medication. He notes his orthopedist given a lidocaine patch but that was making him dizzy and nauseous. He noted that the tramadol Tylenol 3 together was covering his pain. He notes that he does have a follow-up with his primary care on the 10th try to change primary care due to issues with availability. He denied any recent trauma inju ry chest pain first breath headache nausea vomiting diarrhea constipation fever fatigue chills weakness numbness tingling. - Related Data Previous Rx's Medication Instructions Recorded Bacitracin/Polymyx Oint 1 applic TOPICAL BID 5 Days #30 gm 05/07/20 [Polysporin] Allergies Allergy/AdvReac Type Severity Reaction Status Date / Time No Known Allergies Allergy Verified 12/26/20 15:17 Review of Systems ROS Statement: Those systems with pertinent positive or pertinent negative responses have been documented in the HPI. ROS Other: All systems not noted in ROS Statement are negative. Past Medical History Past Medical History: No Reported History Additional Past Medical History / Comment(s): back pain History of Any Multi-Drug Resistant Organisms: None Reported Past Surgical History: No Surgical Hx Reported Past Psychological History: No Psychological Hx Reported Smoking Status: Never smoker Past Alcohol Use History: None Reported Past Drug Use History: None Reported General Exam Limitations: no limitations General appearance: alert, in no apparent distress Head exam: Present: atraumatic, normocephalic, normal inspection ENT exam: Present: normal exam, mucous membranes moist Neck exam: Present: normal inspection. Absent: tenderness, meningismus, lymphadenopathy Respiratory exam: Present: normal lung sounds bilaterally. Absent: respiratory distress, wheezes, rales, rhonchi, stridor Cardiovascular Exam: Present: regular rate, normal rhythm, normal heart sounds. Absent: systolic murmur, diastolic murmur, rubs, gallop, clicks GI/Abdominal exam: Present: soft, normal bowel sounds. Absent: distended, tenderness, guarding, rebound, rigid Extremities exam: Present: normal inspection, full ROM, normal capillary refill, other (Patient complaining of pain in left hand, full range of motion no tenderness.). Absent: tenderness, pedal edema, joint swelling, calf tenderness Neurological exam: Present: alert, oriented X3, CN II-XII intact Psychiatric exam: Present: normal affect, normal mood Skin exam: Present: warm, dry, intact, normal color. Absent: rash Course Vital Signs 12/26/20 15:13 Temperature 99 F Pulse Rate 92 Respiratory 18 Rate Blood Pressure 146/96 O2 Sat by Pulse 100 Oximetry Medical Decision Making - Medical Decision Making 40-year-old male with left hand pain that has been seen several times in the emergency Department and was told to follow-up with orthopedist. Tylenol 3 starter pack and tramadol starter pack ordered for pain management until patient can get in with primary care. Case discussed with Dr. Richey, patient can discharge home. Disposition Clinical Impression: Injury of flexor tendon of left hand Disposition: HOME SELF-CARE Condition: Stable Instructions (If sedation given, give patient instructions): Arthralgia (ED) Additional Instructions: Please return to the Emergency Department if symptoms worsen or any other concerns. Emergency department is not use for pain medication refills, please follow-up with primary care and orthopedist for any alternatives that may be needed. Continue to use left hand as tolerated. Avoid any strenuous activity. Take medications as prescribed. Can take [id number] anti-inflammatories to bridge the gap and pain management. Is patient prescribed a controlled substance at d/c from ED?: No Referrals: Regis Delcid DO [Primary Care Provider] - 1-2 days Time of Disposition: 15:24
== END 2020-12-26 15:49 | disposition home or self-care (01) ==
LOC: EC 13:23
DX: S66.802A Unspecified injury of other specified muscles, fascia and tendons at wrist and hand level, left hand, initial encounter (principal); X58.XXXA Exposure to other specified factors, initial encounter
CPT/HCPCS: 99283

== ENCOUNTER 2021-01-05 22:18 | Emergency (ER) | payer OTHER ==
[2021-01-05 22:33] VITALS: RESP 18
--- NOTE | 2021-01-05 23:57 | ED ---
General Adult HPI - General Chief complaint: Recheck/Abnormal Lab/Rx Stated complaint: Sent from MRI, L hand Injury Time Seen by Provider: 01/05/21 23:25 Source: patient Mode of arrival: ambulatory Limitations: no limitations - History of Present Illness Initial comments: 40 year-old male patient presents to the emergency department today for evaluation of left hand pain. Patient states that having the pain for the last few weeks has been seeing orthopedics and did have an outpatient MRI just prior to coming to the emergency department. States the support specialist did give him a prescription for tramadol but states that it doesn't seem to help and it makes him feel very woozy. States he's had good luck taking Tylenol with Codeine in the past and is requesting a prescription for this. Patient states that the support specialist believes he has a retained piece of glass in his hand which is aggravating a nerve. Patient denies any new pain or injury to the hand. Denies any swelling in the arm. Denies numbness or tingling. Does have an appointment with the support specialist on Saturday. - Related Data Previous Rx's Medication Instructions Recorded Bacitracin/Polymyx Oint 1 applic TOPICAL BID 5 Days #30 gm 05/07/20 [Polysporin] Acetaminophen-Codeine 300-30mg 1 tab PO Q6H PRN #12 tablet 01/05/21 [Tylenol #3] Allergies Allergy/AdvReac Type Severity Reaction Status Date / Time No Known Allergies Allergy Verified 01/05/21 22:33 Review of Systems ROS Statement: Those systems with pertinent positive or pertinent negative responses have been documented in the HPI. ROS Other: All systems not noted in ROS Statement are negative. Past Medical History Past Medical History: No Reported History Additional Past Medical History / Comment(s): back pain History of Any Multi-Drug Resistant Organisms: None Reported Past Surgical History: No Surgical Hx Reported Past Psychological History: No Psychological Hx Reported Smoking Status: Never smoker Past Alcohol Use History: None Reported Past Drug Use History: None Reported General Exam Limitations: no limitations General appearance: alert, in no apparent distress Respiratory exam: Present: normal lung sounds bilaterally. Absent: respiratory distress, wheezes, rales, rhonchi, stridor Cardiovascular Exam: Present: regular rate, normal rhythm, normal heart sounds. Absent: systolic murmur, diastolic murmur, rubs, gallop, clicks Extremities exam: Present: normal inspection, full ROM, normal capillary refill, other (skin the left hand is pink, warm, dry. Cap refill less than 3 seconds. Radial pulses 2+.). Absent: tenderness, pedal edema, joint swelling, calf tenderness Neurological exam: Present: alert, oriented X3, CN II-XII intact Psychiatric exam: Present: normal affect, normal mood Skin exam: Present: warm, dry, intact, normal color. Absent: rash Course Vital Signs 01/05/21 01/06/21 22:31 00:13 Temperature 98.4 F 98.1 F Pulse Rate 73 76 Respiratory 18 18 Rate Blood Pressure 143/95 140/78 O2 Sat by Pulse 98 98 Oximetry Medical Decision Making - Medical Decision Making 40-year-old male patient presented to the emergency department today with left hand pain. Requesting prescription for Tylenol codeine. Physical examination is unremarkable. He does have an appointment with orthopedics on Saturday, we'll give him a three-day supply of Tylenol codeine is instructed to use these sparingly. Return parameters were discussed in detail. He verbalizes understanding. My attending is Dr. Liao. Disposition Clinical Impression: Left hand pain Disposition: HOME SELF-CARE Condition: Good Instructions (If sedation given, give patient instructions): Pain Management (ED) Additional Instructions: Take medications as directed. Follow-up with orthopedics on Saturday as you have planned. Return to the emergency department for any new, worsening, or concerning symptoms. Prescriptions: Acetaminophen-Codeine 300-30mg [Tylenol #3] 1 tab PO Q6H PRN #12 tablet PRN Reason: Pain Is patient prescribed a controlled substance at d/c from ED?: Yes When asked, does pt state using other controlled substances?: Yes If prescribed controlled substance>3 days was MAPS reviewed?: Prescribed <3 Days If opioid is for acute pain is fill amount 7 days or less?: Yes If Rx opioid, was Start Talking consent form obtained?: Yes Referrals: Regis Delcid DO [Primary Care Provider] - 1-2 days Time of Disposition: 23:57
[2021-01-06] MEDS ORDERED: ACET/COD 300 MG/30 MG STARTER PACK 6 TAB BTL PO STA (00:02)
[2021-01-06 00:14] VITALS: BP 140/78; PULSE 76; TEMP 98.1
== END 2021-01-06 00:13 | disposition home or self-care (01) ==
LOC: EC 22:18
DX: M79.642 Pain in left hand (principal)
CPT/HCPCS: 99283

== ENCOUNTER → 2021-01-05 | Outpatient (CLI) | payer OTHER ==
--- NOTE | 2021-01-06 | MR ---
Results: Clinical indication: M60.242. Left hand pain and concern for foreign body granuloma. COMPARISON: Radiographs 12/19/2020. TECHNIQUE: Routine noncontrast-enhanced multiplanar, multisequence MR images were obtained of the lef t hand. FINDINGS: There is a skin marker at the volar aspect of the head overlying the third webspace. There is small joint effusion of the fourth MCP joint. There is focal soft tissue swelling with mild edema at the volar aspect between the third and fourth MCP joints. No focal fluid collection, foreign body or discrete lesion seen. There is incidental 1 cm ganglion cyst within the ulnar triquetral recess communicating with the wris t joint. Otherwise the bone marrow signal is grossly unremarkable. Incidental lunotriquetral coalition. No acu te fracture or dislocation. The visualized flexor and extensor tendons are grossly intact. IMPRESSION: Focal soft tissue swelling/mild edema at the volar aspect of the third webspace, correlates to area o f clinical concern. No discrete lesion or fluid collection is seen. Recommend clinical correlation to resolution and follow-up contrast-enhanced MRI as indicated. Fourth MCP joint effusion. Incidental lunotriquetral correlation and small ganglion cyst at the ulnar aspect of the wrist.
== END | disposition home or self-care (01) ==
LOC: RADMRIMAIN 21:06
PROVIDERS: ATTEND Orthopaedic Surgery
DX: M79.89 Other specified soft tissue disorders (principal); M60.242 Foreign body granuloma of soft tissue, not elsewhere classified, left hand; R60.0 Localized edema; M25.449 Effusion, unspecified hand

== ENCOUNTER 2021-01-25 17:03 | Emergency (ER) | payer OTHER ==
[2021-01-25 17:17] VITALS: BP 112/75; PULSE 76; RESP 18; TEMP 98.2
[2021-01-25] MEDS ORDERED: ACET/COD 300 MG/30 MG STARTER PACK 6 TAB BTL PO STA (17:36)
--- NOTE | 2021-01-25 17:37 | ED ---
Recheck HPI - General Chief Complaint: Recheck/Abnormal Lab/Rx Stated Complaint: Hand Swelling, post surgical Time Seen by Provider: 01/25/21 17:21 Source: patient Mode of arrival: ambulatory Limitations: no limitations - History of Present Illness Initial Comments: 40yo male presenting for post operative pain. pt states that his hand had surgery today by Dr Mtz outpatient to remove glass. he states it is still sort of numb-- but not as much as earlier and is now beginning to burn he states its looks swollen. pt states he didnt know to to expect and is out of his tramadol. pt has no additional complaints. - Related Data Home Medications Medication Instructions Recorded Confirmed No Known Home Medications 01/25/21 01/25/21 Allergies Allergy/AdvReac Type Severity Reaction Status Date / Time No Known Allergies Allergy Verified 01/25/21 17:58 Review of Systems ROS Statement: Those systems with pertinent positive or pertinent negative responses have been documented in the HPI. ROS Other: All systems not noted in ROS Statement are negative. Past Medical History Past Medical History: No Reported History Additional Past Medical History / Comment(s): back pain History of Any Multi-Drug Resistant Organisms: None Reported Past Surgical History: No Surgical Hx Reported Additional Past Surgical History / Comment(s): Glass removed from left hand 01/25/21 Past Psychological History: No Psychological Hx Reported Smoking Status: Never smoker Past Alcohol Use History: None Reported Past Drug Use History: None Reported General Exam - General Exam Comments Initial Comments: General: The patient is awake and alert, in no distress, and does not appear acutely ill. Eye: Pupils are equal, round and reactive to light, extra-ocular movements are intact. No nystagmus. There is normal conjunctiva bilaterally. No signs of icterus. Musculoskeletal: Mild left hand swelling, soft, not tense. tender but not out of proportion. no redness/drainage or hematoma noted. Normal ROM, no tenderness. Strength 5/5. Sensation intact. Radial pulses equal bilaterally 2+. Neurological: A&O x 3. CN II-XII intact, There are no obvious motor or sensory deficits. Coordination appears grossly intact. Speech is normal. Skin: Skin is warm and dry and no rashes or lesions are noted. Psychiatric: Cooperative, appropriate mood & affect, normal judgment. Limitations: no limitations Course Vital Signs 01/25/21 17:13 Temperature 98.2 F Pulse Rate 76 Respiratory 18 Rate Blood Pressure 112/75 O2 Sat by Pulse 99 Oximetry Medical Decision Making - Medical Decision Making 40yo male presenting for cc of post operative pain. exam appears consistent with recent procedure no alarming features, block appears to be wearing off. provided tylenol #3 starter pack and patient is stable miller discharge with orthopedic f/u. Disposition Clinical Impression: Post-operative pain Disposition: HOME SELF-CARE Condition: Good Additional Instructions: Please use medication as discussed. Please follow-up with orthopedic surgery tomorrow. Please return to emergency room if the symptoms increase or worsen or for any other concerns. Is patient prescribed a controlled substance at d/c from ED?: No Referrals: Regis Delcid DO [Primary Care Provider] - 1-2 days Time of Disposition: 17:37
== END 2021-01-25 18:07 | disposition home or self-care (01) ==
LOC: EC 17:03
DX: G89.18 Other acute postprocedural pain (principal)
CPT/HCPCS: 99283

== ENCOUNTER 2021-02-19 13:24 | Emergency (ER) | payer OTHER ==
[2021-02-19 13:30] VITALS: TEMP 98.5
[2021-02-19] MEDS ORDERED: ONDANSETRON 4 MG/2 ML VIAL IVP STA (13:45)
[2021-02-19] MEDS ORDERED: MORPHINE SULFATE 4 MG/ML SYRINGE IV STA (13:45)
[2021-02-19] MEDS ORDERED: SODIUM CHLORIDE 0.9% 1,000 ML IV STA (13:45)
[2021-02-19 14:21] LABS: Basophils % (A) 1 %; Eosinophils # (A) 0.1 k/uL (0-0.7); Eosinophils % (A) 1 %; HGB 11.6 gm/dL (13.0-17.5); Lymphocytes # (A) 0.9 k/uL (1.0-4.8); Lymphocytes % (A) 20 %; MCH 31.2 pg (25.0-35.0); MCHC 35.2 g/dL (31.0-37.0); MCV 88.4 fL (80.0-100.0); Mean Platelet Volume 8.3; Monocytes # (A) 0.4 k/uL (0-1.0); Monocytes % (A) 9 %; Neutrophils # (A) 2.9 k/uL (1.3-7.7); Neutrophils % (A) 67 %; Platelet Count 152 k/uL (150-450); RBC 3.73 m/uL (4.30-5.90); RDW 12.5 % (11.5-15.5); WBC 4.4 k/uL (3.8-10.6)
[2021-02-19 14:33] LABS: INR 1.1 (<1.2); Partial Thromboplastin Time 22.7 sec (22.0-30.0); Prothrombin Time 11.2 sec (9.0-12.0)
[2021-02-19 14:40] LABS: ALT 21 U/L (4-49); AST 24 U/L (17-59); African American GFR (CKD) >90 (>60 ml/min/1.73 sqM); Albumin 3.8 g/dL (3.5-5.0); Alkaline Phosphatase 52 U/L (38-126); Amylase 62 U/L (30-110); Anion Gap 6 mmol/L; Blood Urea Nitrogen 11 mg/dL (9-20); Carbon Dioxide 27 mmol/L (22-30); Chloride 106 mmol/L (98-107); Creatine Kinase 97 U/L (55-170); Glucose 92 mg/dL (74-99); Lipase 65 U/L (23-300); Non-African American GFR(CKD) >90 (>60 ml/min/1.73 sqM); Potassium 3.9 mmol/L (3.5-5.1); Sodium 139 mmol/L (137-145); Total Bilirubin 0.4 mg/dL (0.2-1.3); Total Protein 6.5 g/dL (6.3-8.2)
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
--- NOTE | 2021-02-19 15:12 | CT ---
EXAMINATION TYPE: CT abdomen pelvis w con DATE OF EXAM: 02/19/2021 COMPARISON: None available. HISTORY: right sided abdominal pain CT DLP: 646.4 mGycm Automated exposure control for dose reduction was used. TECHNIQUE: Helical acquisition of images was performed from the lung bases through the pelvis. CONTRAST: Performed without Oral Contrast and with IV Contrast, patient injected with 100 mL of Isovue 300. FINDINGS: LUNG BASES: No significant abnormality is appreciated. LIVER/GB: No significant abnormality is appreciated. PANCREAS: No significant abnormality is seen. SPLEEN: No significant abnormality is seen. ADRENALS: No significant abnormality is seen. KIDNEYS: 2 mm obstructing calculus in the right proximal ureter with mild to moderate hydronephrosis. No left hydronephrosis or nephrolithiasis. A 2.9 cm simple left renal cyst seen. FREE AIR: No free air is visualized. RETROPERITONEAL ADENOPATHY: None visualized REPRODUCTIVE ORGANS: No significant abnormality is seen URINARY BLADDER: No significant abnormality is seen. PELVIC ADENOPATHY: None visualized. OSSEOUS STRUCTURES: No significant abnormality is seen. BOWEL: No significant abnormality is seen. OTHER: Pelvic phleboliths are seen. IMPRESSION: 2 MM OBSTRUCTING RIGHT PROXIMAL URETERAL CALCULUS WITH MILD TO MODERATE HYDRONEPHROSIS.
[2021-02-19 15:26] LABS: Appearance,Urine Clear (Clear); Bilirubin,Urine Negative (Negative); Blood,Urine Moderate (Negative); Color,Urine Yellow; Glucose,Urine (UA) Negative (Negative); Ketones,Urine Negative (Negative); Leukocyte Esterase,Urine Negative (Negative); Mucus,Urine Rare /hpf; Nitrite,Urine Negative (Negative); PH, Urine 5.5 (5.0-8.0); Protein,Urine Negative (Negative); RBC,Urine 11 /hpf (0-5); Specific Gravity,Urine 1.017 (1.001-1.035); Squamous Epithelial Cell,Urine <1 /hpf (0-4); Urobilinogen,Urine <2.0 mg/dL (<2.0); WBC,Urine 2 /hpf (0-5)
[2021-02-19 16:11] VITALS: BP 119/67; PULSE 62; RESP 16
== END 2021-02-19 16:00 | disposition home or self-care (01) ==
LOC: EC 13:24
DX: N13.2 Hydronephrosis with renal and ureteral calculous obstruction (principal)
CPT/HCPCS: 36415; 80053; 82150; 82550; 83605; 83690; 85025; 85610; 85730; 81001; 74177; 99284; 96374; 96375; J2270; J2405; Q9967

== ENCOUNTER 2021-04-19 19:48 | Emergency (ER) | payer OTHER ==
[2021-04-19 19:52] VITALS: BP 120/78; PULSE 75; RESP 18; TEMP 97.7
[2021-04-19] MEDS ORDERED: ORPHENADRINE 30 MG/ML 2 ML VIAL IM STA (20:07)
[2021-04-19] MEDS ORDERED: HYDROcodone/APAP 5-325MG 1 EACH TAB PO STA (20:07)
[2021-04-19] MEDS ORDERED: KETOROLAC 15 MG/ML 1 ML VIAL IM STA (20:07)
[2021-04-19] MEDS ORDERED: ACET/COD 300 MG/30 MG STARTER PACK 6 TAB BTL PO STA (20:15)
--- NOTE | 2021-04-19 20:15 | ED ---
Back Pain HPI - General Chief Complaint: Back Pain/Injury Stated Complaint: Back Pain Source: patient, RN notes reviewed, old records reviewed Limitations: no limitations - History of Present Illness Initial Comments: 40-year-old well-appearing black male, alert and oriented 4, presents to the emergency room with complaints of left-sided low back pain after heavy lifting at work today. Patient states that he has a history of low back pain 2016. He has seen his primary care doctor for this in the past. This feels like the same pain that he's had previously. He denies any other medical history he denies smoking and denies any other medications on a daily basis. Patient denies any fevers, saddle anesthesia, incontinence of bowel or bladder. MD Complaint: back pain -: hour(s) (4) Place: work Radiation: none Severity scale (1-10): 9 Quality: other (Tightness) Consistency: constant Improves With: immobilization Worsens With: movement Context: while lifting Associated Symptoms: denies other symptoms - Related Data Previous Rx's Medication Instructions Recorded Cyclobenzaprine [Flexeril] 10 mg PO TID PRN #15 tab 04/19/21 Ibuprofen [Motrin] 600 mg PO Q8HR PRN #30 tab 04/19/21 Allergies Allergy/AdvReac Type Severity Reaction Status Date / Time No Known Allergies Allergy Verified 04/19/21 19:52 Review of Systems ROS Statement: Those systems with pertinent positive or pertinent negative responses have been documented in the HPI. ROS Other: All systems not noted in ROS Statement are negative. Past Medical History Past Medical History: No Reported History Additional Past Medical History / Comment(s): back pain History of Any Multi-Drug Resistant Organisms: None Reported Past Surgical History: No Surgical Hx Reported Additional Past Surgical History / Comment(s): Glass removed from left hand 01/25/21 Past Psychological History: No Psychological Hx Reported Smoking Status: Never smoker Past Alcohol Use History: None Reported Past Drug Use History: None Reported General Exam Limitations: no limitations General appearance: alert, in no apparent distress Head exam: Present: atraumatic, normocephalic, normal inspection Eye exam: Present: normal appearance, PERRL, EOMI. Absent: scleral icterus, conjunctival injection, periorbital swelling ENT exam: Present: normal exam, normal oropharynx, mucous membranes moist Neck exam: Present: normal inspection, full ROM. Absent: tenderness, meningismus, lymphadenopathy, thyromegaly Respiratory exam: Present: normal lung sounds bilaterally. Absent: respiratory distress, wheezes, rales, rhonchi, stridor, chest wall tenderness, accessory muscle use, decreased breath sounds, prolonged expiratory Cardiovascular Exam: Present: regular rate, normal rhythm, normal heart sounds. Absent: systolic murmur, diastolic murmur, rubs, gallop, clicks GI/Abdominal exam: Present: soft, normal bowel sounds. Absent: distended, tenderness, guarding, rebound, rigid Extremities exam: Present: normal inspection, full ROM, normal capillary refill. Absent: tenderness, pedal edema, joint swelling, calf tenderness Back exam: Present: normal inspection, full ROM, tenderness, muscle spasm, paraspinal tenderness. Absent: CVA tenderness (R), CVA tenderness (L), vertebral tenderness (Left lumbar), rash noted Expanded Back exam: Positive Straight Leg Raise: Left, Right (Both worsening pain on the left side) Neurological exam: Present: alert, oriented X3, CN II-XII intact Psychiatric exam: Present: normal affect, normal mood Skin exam: Present: warm, dry, intact, normal color. Absent: rash, cyanosis, diaphoretic, erythema, petechiae, pallor, mottled Course Vital Signs 04/19/21 19:48 Temperature 97.7 F Pulse Rate 75 Respiratory 18 Rate Blood Pressure 120/78 O2 Sat by Pulse 100 Oximetry Medical Decision Making - Medical Decision Making Patient is able to ambulate, no saddle anesthesia or bowel or bladder incontinence. Patient has no history of cancers or unexplained weight loss. He did not sustain any trauma but states that he did exacerbate his chronic low back pain after lifting a heavy box today at work. Patient states that this is similar to the back pain he's had in the past. He has no focal neurological deficits. Pain is exacerbated with straight leg test. Patient was given muscle relaxer and pain medication and directed to follow up with primary care doctor for continuation of care. Patient is ambulating in the room at discharge. V ital signs are stable. Disposition Clinical Impression: Chronic back pain Disposition: HOME SELF-CARE Condition: Good Instructions (If sedation given, give patient instructions): Back Pain (ED), Lower Back Exercises (ED) Additional Instructions: Take medication as prescribed, do not drink or drive while taking medication. Follow-up with the primary care doctor in 1 week. Follow-up with orthopedics as needed for chronic back pain. Prescriptions: Cyclobenzaprine [Flexeril] 10 mg PO TID PRN #15 tab PRN Reason: Muscle Spasm Ibuprofen [Motrin] 600 mg PO Q8HR PRN #30 tab PRN Reason: Pain Is patient prescribed a controlled substance at d/c from ED?: No Referrals: Regis Delcid DO [Primary Care Provider] - 1-2 days Priscilla Weiss DO [Doctor of Osteopathic Medicine] - 1-2 days Time of Disposition: 20:14
== END 2021-04-19 20:52 | disposition home or self-care (01) ==
LOC: EC 19:48
DX: G89.29 Other chronic pain (principal); M54.5 Low back pain
CPT/HCPCS: 96372; 99283

== ENCOUNTER 2021-06-02 09:02 | Emergency (ER) | payer OTHER ==
[2021-06-02 09:11] VITALS: RESP 18; TEMP 97.6
[2021-06-02] MEDS ORDERED: ORPHENADRINE 30 MG/ML 2 ML VIAL IM STA (09:20)
[2021-06-02] MEDS ORDERED: KETOROLAC 15 MG/ML 1 ML VIAL IM STA (09:20)
--- NOTE | 2021-06-02 10:07 | ED ---
General Adult HPI - General Chief complaint: Back Pain/Injury Stated complaint: lower back pain Time Seen by Provider: 06/02/21 09:12 Source: patient Mode of arrival: ambulatory Limitations: no limitations - History of Present Illness Initial comments: 40-year-old male with a past medical history of back pain presents to the emergency room for exacerbation of back pain. 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 States his back started hurting more. She states it then it radiates down his leg. Denies bladder or bowel changes. Denies saddle anesthesia. Denies fevers or chills.Patient has no other complaints at this time including shortness of breath, chest pain, abdominal pain, nausea or vomiting, headache, or visual changes. - Related Data Previous Rx's Medication Instructions Recorded Cyclobenzaprine [Flexeril] 10 mg PO TID #14 tab 06/02/21 predniSONE 50 mg PO DAILY #5 tablet 06/02/21 Allergies Allergy/AdvReac Type Severity Reaction Status Date / Time No Known Allergies Allergy Verified 06/02/21 09:49 Review of Systems ROS Statement: Those systems with pertinent positive or pertinent negative responses have been documented in the HPI. ROS Other: All systems not noted in ROS Statement are negative. Past Medical History Past Medical History: No Reported History Additional Past Medical History / Comment(s): back pain History of Any Multi-Drug Resistant Organisms: None Reported Past Surgical History: No Surgical Hx Reported Additional Past Surgical History / Comment(s): Glass removed from left hand 01/25/21 Past Psychological History: No Psychological Hx Reported Smoking Status: Never smoker Past Alcohol Use History: None Reported Past Drug Use History: None Reported General Exam Limitations: no limitations General appearance: alert, in no apparent distress Head exam: Present: atraumatic Eye exam: Present: normal appearance, PERRL, EOMI. Absent: scleral icterus, conjunctival injection ENT exam: Present: normal exam, mucous membranes moist Neck exam: Present: normal inspection, full ROM. Absent: tenderness Respiratory exam: Present: normal lung sounds bilaterally. Absent: respiratory distress, wheezes Cardiovascular Exam: Present: regular rate, normal rhythm, normal heart sounds GI/Abdominal exam: Present: soft, normal bowel sounds. Absent: distended, tenderness Back exam: Present: vertebral tenderness (generalized tenderness low back). Absent: CVA tenderness (R) Course Vital Signs 06/02/21 09:09 Temperature 97.6 F Pulse Rate 80 Respiratory 18 Rate Blood Pressure 118/55 O2 Sat by Pulse 99 Oximetry Medical Decision Making - Medical Decision Making Patient percent for acute on chronic back pain. Patient has had back pain for years, worsened after a hard day at work lifting furniture. Denies red flag symptoms. Patient ambulatory. Patient was given Toradol and Norflex in the emergency room. Patient will be discharged home with steroid and muscle re laxer. Given pain is in chronic for quite some time he needs to see orthopedics for an MRI. He is agreeable to this. He will return here for any worsening symptoms. Disposition Clinical Impression: Mechanical back pain Disposition: HOME SELF-CARE Condition: Good Instructions (If sedation given, give patient instructions): Acute Low Back Pain (ED) Additional Instructions: Please follow-up with your doctor and orthopedics in one to 2 days. Take medi cation as directed. Do not drive while taking muscle relaxer. Return to the emergency room for any worsening symptoms. Prescriptions: Cyclobenzaprine [Flexeril] 10 mg PO TID #14 tab predniSONE 50 mg PO DAILY #5 tablet Is patient prescribed a controlled substance at d/c from ED?: No Referrals: Regis Delcid DO [Primary Care Provider] - 1-2 days Time of Disposition: 10:06
[2021-06-02 10:25] VITALS: BP 123/79; PULSE 78
== END 2021-06-02 10:34 | disposition home or self-care (01) ==
LOC: EC 09:02
DX: M54.89 Other dorsalgia (principal)
CPT/HCPCS: 99283; 96372 ×2; J2360; J1885

== ENCOUNTER 2022-02-01 13:48 | Emergency (ER) | payer OTHER ==
[2022-02-01 14:08] VITALS: BP 111/70; PULSE 80; RESP 16; TEMP 98.4
[2022-02-01] MEDS ORDERED: DIPH,PERTUS(ACELL)TETVAC-LF 0.5 ML VIAL IM ONE (15:16)
[2022-02-01] MEDS ORDERED: KETOROLAC 15 MG/ML 1 ML VIAL IM STA (15:16)
[2022-02-01] MEDS ORDERED: ACETAMINOPHEN TAB 500 MG TAB PO STA (15:16)
--- NOTE | 2022-02-01 15:18 | ED ---
General Adult HPI - General Chief complaint: Extremity Injury, Upper Stated complaint: IHS-Rt Hand Injury Time Seen by Provider: 02/01/22 15:00 Source: patient, RN notes reviewed, old records reviewed Mode of arrival: ambulatory Limitations: no limitations - History of Present Illness Initial comments: Patient is a 41-year-old male with past medical history that is unremarkable presents emergency Department complaining of right middle finger pain. Patient was at work when something heavy,a box fell on it and pinched it against the table. Presents over concern for injury. Endorses a small abrasion but no excessive bleeding. His reduced range of motion. Is concerned he may have broken it. Denies any sensory deficits. His no other acute complaint at this time. Uncertain when his last tetanus shot was. - Related Data Home Medications Medication Instructions Recorded Confirmed No Known Home Medications 02/01/22 02/01/22 Allergies Allergy/AdvReac Type Severity Reaction Status Date / Time No Known Allergies Allergy Verified 02/01/22 15:23 Review of Systems ROS Statement: Those systems with pertinent positive or pertinent negative responses have been documented in the HPI. Review of Systems: CONST: Denies fever EYES: Denies blurry vision ENT: Denies nasal congestion C/V: Denies Chest pain RESP: Denies shortness of breath GI: Denies abdominal pain : Denies dysuria SKIN: Endorses small abrasion.. MSK: Endorses right middle finger pain. NEURO: Denies headache ROS Other: All systems not noted in ROS Statement are negative. Past Medical History Past Medical History: No Reported History Additional Past Medical History / Comment(s): back pain History of Any Multi-Drug Resistant Organisms: None Reported Past Surgical History: No Surgical Hx Reported, Orthopedic Surgery Additional Past Surgical History / Comment(s): Glass removed from left hand 01/25/21 Past Psychological History: No Psychological Hx Reported Smoking Status: Never smoker Past Alcohol Use History: None Reported Past Drug Use History: None Reported General Exam - General Exam Comments Initial Comments: General: Appears in no acute distress. HEAD: Normal with no signs of head trauma. EYES: EOMI ENT: Hearing grossly intact RESPIRATORY:. No respiratory distress. C/V: Regular rate and rhythm. Peripheral pulses 2+ and intact throughout. ABD: Abdomen is nondistended. EXT: Reduced range of motion of the right third phalanx. Tenderness to palpation over the PIP as well as just proximal to it. No obvious deformity. Fingers mildly swollen. SKIN: Slight linear abrasion located over the proximal phalange of the third finger on the right hand. Not actively bleeding. NEURO: Alert and oriented 4. No focal sensory strength deficits. Limitations: no limitations Course Vital Signs 02/01/22 14:03 Temperature 98.4 F Pulse Rate 80 Respiratory 16 Rate Blood Pressure 111/70 O2 Sat by Pulse 100 Oximetry Medical Decision Making - Medical Decision Making This and the patient's presentation and physical exam, I'm concerned for possible dramatic injury the patient's right middle finger. We will obtain an x-ray, as well as update the patient's tetanus and provide him with analgesia. He was in agreement this plan. X-ray showed no signs of acute bony traumatic injury. There is some soft tissue swelling. On reevaluation, I observed the patient. His finger was placed in a finger splint. He was in agreement this plan. He continues [id number] Tylenol and Motrin for pain control. Will be provided with a work note. Recommended follow-up with PCP in the next 3 days. Explained he likely has a finger sprain versus jammed finger. I instructed the patient to follow up with their PCP in the next 3 days. I explained that the patient should return to the emergency department if they experience any worsening symptoms. Strict return precautions were discussed with the patient. The patient expressed understanding of these instructions. I answered all questions that the patient had. The patient was discharged home in good condition with their prescriptions and follow up information. Disposition Clinical Impression: Finger sprain Disposition: HOME SELF-CARE Condition: Good Instructions (If sedation given, give patient instructions): Finger Sprain (ED) Is patient prescribed a controlled substance at d/c from ED?: No Referrals: Regis Delcid DO [Primary Care Provider] - 1-2 days Time of Disposition: 15:50
--- NOTE | 2022-02-01 15:37 | XR ---
EXAMINATION TYPE: XR hand complete RT DATE OF EXAM: 02/01/2022 CLINICAL HISTORY: Pain after crushing injury. TECHNIQUE: Frontal, lateral and oblique images of the right hand are obtained. COMPARISON: Right hand x-ray August 26, 2019 FINDINGS: Exam slightly suboptimal due to incomplete extension of the phalanges There is no acute fr acture/dislocation evident in the right hand. New mild to moderate diffuse soft tissue swelling over the right third finger. Old healed fracture deformity with abnormal volar angulation midshaft level o f the fourth and fifth metacarpals redemonstrated The joint spaces in the right hand appear within no rmal limits. The overlying soft tissue appears unremarkable. IMPRESSION: There is no acute fracture or dislocation in the right hand.
== END 2022-02-01 16:11 | disposition home or self-care (01) ==
LOC: EC 13:48
DX: S63.612A Unspecified sprain of right middle finger, initial encounter (principal); Z23 Encounter for immunization; W23.1XXA Caught, crushed, jammed, or pinched between stationary objects, initial encounter; Y99.0 Civilian activity done for income or pay
CPT/HCPCS: 73130; 90715; 99283; 90471; 96372; J1885

== ENCOUNTER 2022-04-24 15:32 | Emergency (ER) | payer OTHER ==
[2022-04-24 15:53] VITALS: BP 119/76; PULSE 84; RESP 18; TEMP 98.3
--- NOTE | 2022-04-24 16:31 | ED ---
General Adult HPI - General Chief complaint: Recheck/Abnormal Lab/Rx Stated complaint: wants covid test Time Seen by Provider: 04/24/22 16:25 Source: patient Mode of arrival: ambulatory Limitations: no limitations - History of Present Illness Initial comments: Patient is a 41-year-old male who presents to the emergency department seeking COVID-19 testing. Patient states he was exposed to COVID-19 a few days ago. Needs testing for his work. States his throat is a little bit scratchy but denies throat pain. Denies fever, chills, chest pain, shortness of breath, and other concerns. - Related Data Home Medications Medication Instructions Recorded Confirmed No Known Home Medications 02/01/22 02/01/22 Allergies Allergy/AdvReac Type Severity Reaction Status Date / Time No Known Allergies Allergy Verified 04/24/22 15:53 Review of Systems ROS Statement: Those systems with pertinent positive or pertinent negative responses have been documented in the HPI. ROS Other: All systems not noted in ROS Statement are negative. Past Medical History Past Medical History: No Reported History Additional Past Medical History / Comment(s): back pain History of Any Multi-Drug Resistant Organisms: None Reported Past Surgical History: No Surgical Hx Reported, Orthopedic Surgery Additional Past Surgical History / Comment(s): Glass removed from left hand 01/25/21 Past Psychological History: No Psychological Hx Reported Smoking Status: Never smoker Past Alcohol Use History: None Reported Past Drug Use History: None Reported General Exam Limitations: no limitations General appearance: alert, in no apparent distress Head exam: Present: atraumatic, normocephalic, normal inspection Eye exam: Present: normal appearance, PERRL, EOMI. Absent: scleral icterus, conjunctival injection, periorbital swelling ENT exam: Present: normal oropharynx Respiratory exam: Present: normal lung sounds bilaterally. Absent: respiratory distress, wheezes, rales, rhonchi, stridor Cardiovascular Exam: Present: regular rate, normal rhythm, normal heart sounds. Absent: systolic murmur, diastolic murmur, rubs, gallop, clicks Neurological exam: Present: alert, oriented X3, CN II-XII intact Psychiatric exam: Present: normal affect, normal mood Course Vital Signs 04/24/22 04/24/22 15:52 16:40 Temperature 98.3 F 98.3 F Pulse Rate 84 84 Respiratory 18 18 Rate Blood Pressure 119/76 119/76 O2 Sat by Pulse 99 99 Oximetry Medical Decision Making - Medical Decision Making This is a 41-year-old male recently exposed to COVID-19 seeking testing. Thorough history and examination were performed. Patient is well-appearing. No chest pain or shortness of breath. The pharynx is normal-appearing without erythema, swelling, or exudate. COVID-19 is not detected. Patient will be discharged. Dr. Vazquez is my attending. - Lab Data Lab Results 04/24/22 Range/Units 15:54 Coronavirus (PCR) Not Detected (Not Detectd) Disposition Clinical Impression: Encounter for screening laboratory testing for COVID-19 virus Disposition: HOME SELF-CARE Condition: Good Additional Instructions: Follow-up with primary care provider in one to 2 days. Return to the emergency department if you experience new, concerning, or worsening symptoms. Is patient prescribed a controlled substance at d/c from ED?: No Referrals: Regis Delcid DO [Primary Care Provider] - 1-2 days Time of Disposition: 16:30
== END 2022-04-24 16:41 | disposition home or self-care (01) ==
LOC: EC 15:32
DX: R09.89 Other specified symptoms and signs involving the circulatory and respiratory systems (principal); Z20.822 Contact with and (suspected) exposure to COVID-19
CPT/HCPCS: 87635; 99283

== ENCOUNTER 2022-07-20 23:20 | Emergency (ER) | payer OTHER ==
[2022-07-20 23:25] VITALS: RESP 18
[2022-07-21] MEDS ORDERED: IBUPROFEN 800 MG TAB PO STA (00:04)
--- NOTE | 2022-07-21 01:05 | CT ---
EXAMINATION TYPE: CT lumbar spine wo con DATE OF EXAM: 07/21/2022 COMPARISON: 02/19/2021 HISTORY: pain after bending at work. CT DLP: 579.5 mGycm Automated exposure control for dose reduction was used. Images obtained from T12 to S3 vertebra without contrast. The lumbar vertebrae have normal alignment. Posterior elements are intact. Facet joints are intact. T here is no lumbar paraspinal mass. Disc spaces are fairly normal. There is 3 mm calculus in the anter ior left kidney. There are several small calculi in the right kidney. No hydronephrosis. IMPRESSION: Negative CT scan lumbar spine. No fracture. No spinal stenosis. No change compared to old exam.
--- NOTE | 2022-07-21 02:13 | ED ---
General Adult HPI - General Chief complaint: Back Pain/Injury Stated complaint: back pain Time Seen by Provider: 07/20/22 23:42 Source: patient, RN notes reviewed, old records reviewed Mode of arrival: ambulatory Limitations: no limitations - History of Present Illness Initial comments: Patient is a 42-year-old male who presents emergency Department complaining of lower back pain. 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 States he was working [id number] when he was doing some heavy lifting and felt something pop in his low back. States initially felt numb at the site and then he had intense pain that radiated throughout his back. Initially improved, however he believes he reaggravated it during similar work during the week. States it is overall improved, as he was having difficulty standing up straight due to the pain. However he presents today to be evaluated to make sure nothing else is wrong. Denies any saddle last seizure. Denies lower extremity weakness. Denies any lower extremity numbness. Denies any urinary or bowel incontinence or reten tion. His no other acute complaints or injuries at this time. Presents for further evaluation. - Related Data Previous Rx's Medication Instructions Recorded Lidocaine 5% Patch [Lidoderm 5% 1 patch TOPICAL DAILY PRN 7 Days 07/21/22 Patch] #7 patch Allergies Allergy/AdvReac Type Severity Reaction Status Date / Time No Known Allergies Allergy Verified 07/20/22 23:25 Review of Systems ROS Statement: Those systems with pertinent positive or pertinent negative responses have been documented in the HPI. Review of Systems: CONST: Denies fever EYES: Denies blurry vision ENT: Denies nasal congestion C/V: Denies Chest pain RESP: Denies shortness of breath GI: Denies abdominal pain : Denies dysuria SKIN: Denies rash. MSK: Endorses low back pain NEURO: Denies headache ROS Other: All systems not noted in ROS Statement are negative. Past Medical History Past Medical History: No Reported History Additional Past Medical History / Comment(s): back pain History of Any Multi-Drug Resistant Organisms: None Reported Past Surgical History: No Surgical Hx Reported, Orthopedic Surgery Additional Past Surgical History / Comment(s): Glass removed from left hand 01/25/21 Past Psychological History: No Psychological Hx Reported Smoking Status: Never smoker, Vaper Past Alcohol Use History: Occasional Past Drug Use History: None Reported General Exam - General Exam Comments Initial Comments: General: Appears in no acute distress. HEAD: Normal with no signs of head trauma. EYES: EOMI ENT: Hearing grossly intact, normal oropharynx. RESPIRATORY: No respiratory distress C/V: Regular rate and rhythm. S1 and S2 auscultated. Peripheral pulses 2+ and intact throughout. ABD: Nondistended EXT: Normal range of motion, no obvious deformity. Midline upper lumbar spine tenderness to palpation. Also paraspinal muscle tenderness palpation. No midline cervical or thoracic spine tenderness to palpation. SKIN: No rashes or lesions observed on exposed skin. NEURO: Alert and oriented x 4. Cranial nerves II-XII intact. No focal sensory or strength deficits. Able to ambulate without difficulty. No saddle a nesthesia. Limitations: no limitations Course Vital Signs 07/20/22 07/21/22 23:23 02:20 Temperature 98 F 98.4 F Pulse Rate 70 84 Respiratory 18 18 Rate Blood Pressure 124/74 124/72 O2 Sat by Pulse 98 98 Oximetry Medical Decision Making - Medical Decision Making Based on the patient's presentation and physical exam, I'm concerned for low back injury. Suspect muscle strain but with the midline tenderness cannot rule out bony traumatic injury at this time. I did offer the patient's CT imaging and lumbar spine which he accepted. He will be given a lidocaine patch as well as ibuprofen for pain control. He was in agreement this plan. I'm no concern for cauda equina syndrome at this time as he has no red flag symptoms. Vital signs are within acceptable limits. He was in agreement this plan. CT imaging shows no acute traumatic injury. No spinal stenosis. No change compared to prior imaging. I discussed with the patient the imaging findings. He is feeling somewhat improved at this time. I believe is safe for him to be discharged home. Likely is a muscle strain. Recommended follow-up with his PCP. Also recommended rest as much as possible. He was in agreement with this plan. He'll be sent home with a prescription for lidocaine patches. I will provide the patient with a prescription for lidocaine patches. I instructed the patient to follow up with their PCP in the next 1-3 days. I explained that the patient should return to the emergency department if they experience any worsening symptoms. Strict return precautions were discussed with the patient. The patient expressed understanding of these instructions. I answered all questions that the patient had. The patient was discharged home in good condition with their prescriptions and follow up information. Disposition Clinical Impression: Back strain Disposition: HOME SELF-CARE Condition: Good Instructions (If sedation given, give patient instructions): Low Back Strain (ED), Acute Low Back Pain (ED) Prescriptions: Lidocaine 5% Patch [Lidoderm 5% Patch] 1 patch TOPICAL DAILY PRN 7 Days #7 patch PRN Reason: Pain Is patient prescribed a controlled substance at d/c from ED?: No Referrals: Regis Delcid DO [Primary Care Provider] - 1-2 days Time of Disposition: 02:00
[2022-07-21 02:21] VITALS: BP 124/72; PULSE 84; TEMP 98.4
[2022-07-21] MEDS ORDERED: LIDOCAINE 5% PATCH TOPICAL SCH (09:00)
== END 2022-07-21 02:21 | disposition home or self-care (01) ==
LOC: EC 23:20
DX: S39.012A Strain of muscle, fascia and tendon of lower back, initial encounter (principal); X58.XXXA Exposure to other specified factors, initial encounter
CPT/HCPCS: 72131

== ENCOUNTER 2023-01-25 20:02 | Emergency (ER) | payer OTHER ==
[2023-01-25] MEDS ORDERED: IBUPROFEN 600 MG TAB PO STA (20:24)
--- NOTE | 2023-01-25 20:30 | ED ---
Upper Extremity HPI - General Chief Complaint: Extremity Injury, Upper Stated Complaint: left arm injury [facility] Time Seen by Provider: 01/25/23 20:16 Source: patient Mode of arrival: ambulatory Limitations: no limitations - History of Present Illness Initial Comments: Patient is a 42-year-old male who presents to the emergency department for a left arm injury. Patient thinks he was hit by a controlled arm at work 2 days ago. Today he noticed mild swelling of his left forearm. He reports minimal pain. No numbness and tingling. No issues with range of motion MD Complaint: Injury to:: left - Related Data Previous Rx's Medication Instructions Recorded Lidocaine 5% Patch [Lidoderm 5% 1 patch TOPICAL DAILY PRN 7 Days 07/21/22 Patch] #7 patch Ibuprofen [Motrin] 800 mg PO Q8HR PRN #15 tab 01/25/23 Allergies Allergy/AdvReac Type Severity Reaction Status Date / Time No Known Allergies Allergy Verified 07/20/22 23:25 Review of Systems ROS Statement: Those systems with pertinent positive or pertinent negative responses have been documented in the HPI. ROS Other: All systems not noted in ROS Statement are negative. Past Medical History Past Medical History: No Reported History Additional Past Medical History / Comment(s): back pain History of Any Multi-Drug Resistant Organisms: None Reported Past Surgical History: No Surgical Hx Reported, Orthopedic Surgery Additional Past Surgical History / Comment(s): Glass removed from left hand 01/25/21 Past Psychological History: No Psychological Hx Reported Smoking Status: Vaper Past Alcohol Use History: Occasional Past Drug Use History: None Reported General Exam Limitations: no limitations General appearance: alert, in no apparent distress Head exam: Present: atraumatic, normocephalic, normal inspection Respiratory exam: Present: normal lung sounds bilaterally. Absent: respiratory distress, wheezes, rales, rhonchi, stridor Cardiovascular Exam: Present: regular rate, normal rhythm, normal heart sounds. Absent: systolic murmur, diastolic murmur, rubs, gallop, clicks Extremities exam: Present: other (minimal swelling to left middle forearm posteriorly. Nontender. No warmth, erythema, ecchymosis. Neurovascularly intact. Full range of motion.) Course Vital Signs 01/25/23 01/25/23 20:07 20:50 Temperature 98 F 97.8 F Pulse Rate 79 73 Respiratory 16 18 Rate Blood Pressure 131/81 129/68 O2 Sat by Pulse 99 99 Oximetry Medical Decision Making - Medical Decision Making Was pt. sent in by a medical professional or institution ([facility] LIL[facility] Perdomo, [employer], urgent care, hospital, or alf...) When possible be specific @ -[No] Did you speak to anyone other than the patient for history (EMS, parent, family, police, friend...)? What history was obtained from this source @ -[No] Did you review nursing and triage notes (agree or disagree)? Why? @ -[I reviewed and agree with nursing and triage notes] Were old charts reviewed (outside hosp., previous admission, EMS record, old EKG, old radiological studies, urgent care reports/EKG's, alf records)? Report findings @ -[No old charts were reviewed] Differential Diagnosis (chest pain, altered mental status, abdominal pain women, abdominal pain men, vaginal bleeding, weakness, fever, dyspnea, syncope, headache, dizziness, GI bleed, back pain, seizure, CVA, palpatations, mental health)? @ -forearm fracture, forearm sprain, soft tissue injury, cellulitis, abscess EKG interpreted by me (3pts min.). @ -[As above] X-rays interpreted by me (1pt min.). @ -yes, left forearm xray negative for acute process CT interpreted by me (1pt min.). @ -[None done] U/S interpreted by me (1pt. min.). @ -[None done] What testing was considered but not performed or refused? (CT, X-rays, U/S, labs)? Why? @ -[None] What meds were considered but not given or refused? Why? @ -[None] Did you discuss the management of the patient with other professionals (professionals i.e. ANA LILIA Perdomo, M[employer]ER, lab, RT, psych nurse, social services specialist, academic adviser, teacher, environmental conservation officer, human services case manager)? Give summary @ -[No] Was smoking cessation discussed for >3mins.? @ -[No] Was critical care preformed (if so, how long)? @ -[No] Were there social determinants of health that impacted care today? How? (Homelessness, low income, unemployed, alcoholism, drug addiction, transportation, low edu. Level, literacy, decrease access to med. care, care home, rehab)? @ -[No] Was there de-escalation of care discussed even if they declined (Discuss DNR or withdrawal of care, Hospice)? DNR status @ -[No] What co-morbidities impacted this encounter? (DM, HTN, Smoking, COPD, CAD, Cancer, CVA, ARF, Chemo, Hep., AIDS, mental health diagnosis, sleep apnea, morbid obesity)? @ -[None] Was patient admitted / discharged? Hospital course, mention meds given and route, prescriptions, significant lab abnormalities, going to OR and other pertinent info. @ -Patient presenting with minimal swelling to left forearm after injury at work. No evidence of infection. No fracture on xray. Patient will be discharged with motrin for soft tissue injury Undiagnosed new problem with uncertain prognosis? @ -[No] Drug Therapy requiring intensive monitoring for toxicity (Heparin, Nitro, Insulin, Cardizem)? @ -[No] Were any procedures done? @ -[No] Diagnosis/symptom? @ -left forearm injury Acute, or Chronic, or Acute on Chronic? @ -acute Uncomplicated (without systemic symptoms) or Complicated (systemic symptoms)? @ -uncomplicated Side effects of treatment? @ -[No] Exacerbation, Progression, or Severe Exacerbation? @ -[No] Poses a threat to life or bodily function? How? (Chest pain, [place], [place], pneumonia, PE, COPD, DKA, ARF, appy, cholecystitis, CVA, Diverticulitis, Homicidal, Suicidal, threat to staff... and all critical care pts) @ -[No] Dr. Richey is my attending Disposition Clinical Impression: Injury of left forearm Disposition: HOME SELF-CARE Condition: Good Instructions (If sedation given, give patient instructions): P.R.I.C.E. Jeremie atmmilad (ED) Additional Instructions: Take medication as directed. Please follow-up with your primary care provider in 1-2 days. Return to the emergency department if you experience new, concerning, or worsening symptoms. Prescriptions: Ibuprofen [Motrin] 800 mg PO Q8HR PRN #15 tab PRN Reason: Pain Is patient prescribed a controlled substance at d/c from ED?: No Referrals: Regis Delcid DO [Primary Care Provider] - 1-2 days Time of Disposition: 21:03
--- NOTE | 2023-01-25 20:56 | XR ---
EXAMINATION TYPE: XR forearm LT DATE OF EXAM: 01/25/2023 8:40 PM INDICATION: Patient age:Male; 42 years old; Reason for study: injury; COMPARISON: None TECHNIQUE: The left forearm was examined in AP and lateral projections. FINDINGS: No acute osseous pathology, soft tissue swelling or joint dislocations are seen. IMPRESSION: No evidence of acute fracture.
[2023-01-25 21:06] VITALS: RESP 18
[2023-01-25 21:31] VITALS: BP 134/88; PULSE 71; TEMP 98.7
== END 2023-01-25 21:31 | disposition home or self-care (01) ==
LOC: EC 20:02
DX: S59.912A Unspecified injury of left forearm, initial encounter (principal); F17.290 Nicotine dependence, other tobacco product, uncomplicated; W22.8XXA Striking against or struck by other objects, initial encounter
CPT/HCPCS: 99283

== ENCOUNTER 2024-01-21 09:04 | Emergency (ER) | payer SELFPAY ==
[2024-01-21 09:44] VITALS: BP 107/62; PULSE 51; RESP 20; TEMP 98.4
--- NOTE | 2024-01-21 09:54 | ED ---
URI HPI - General Chief Complaint: Upper Respiratory Infection Stated Complaint: Weakness Time Seen by Provider: 01/21/24 09:14 Source: patient, RN notes reviewed Mode of arrival: ambulatory Limitations: no limitations - History of Present Illness Initial Comments: Quick [id number] male presents emergency department chief complaint of sore throat, body aches congestion. Patient states not felt well over the last 3 days states he did have sick contact has been sick denies any abdominal pain he reports fever chills. No GI symptoms - Related Data Previous Rx's Medication Instructions Recorded Lidocaine 5% Patch [Lidoderm 5% 1 patch TOPICAL DAILY PRN 7 Days 07/21/22 Patch] #7 patch Ibuprofen [Motrin] 800 mg PO Q8HR PRN #15 tab 01/25/23 Allergies Allergy/AdvReac Type Severity Reaction Status Date / Time No Known Allergies Allergy Verified 01/21/24 15:31 Review of Systems ROS Statement: Those systems with pertinent positive or pertinent negative responses have been documented in the HPI. ROS Other: All systems not noted in ROS Statement are negative. Past Medical History Past Medical History: No Reported History Additional Past Medical History / Comment(s): back pain History of Any Multi-Drug Resistant Organisms: None Reported Past Surgical History: No Surgical Hx Reported, Orthopedic Surgery Additional Past Surgical History / Comment(s): Glass removed from left hand 01/25/21 Past Psychological History: No Psychological Hx Reported Smoking Status: Vaper Past Alcohol Use History: Occasional Past Drug Use History: None Reported General Exam - General Exam Comments Initial Comments: Visual Physical Exam Vital signs reviewed General: Well-appearing, nontoxic, no acute distress. Head: Normocephalic, atraumatic Eyes: PERRLA, EOMI ENT: Airway patent Chest: Nonlabored breathing Skin: No visual rash, normal skin tone Neuro: Alert and oriented 3 Musculoskeletal: No gross abnormalities Limitations: no limitations Course Vital Signs 01/21/24 09:34 Temperature 98.4 F Pulse Rate 51 L Respiratory 20 Rate Blood Pressure 107/62 O2 Sat by Pulse 100 Oximetry Medical Decision Making - Medical Decision Making I completed the quick note portion of this chart signed Carl Mejia PA-C Patient left against medical vice in the waiting room - Lab Data Lab Results 01/21/24 Range/Units 09:38 Influenza Type A (PCR) Not Detected (Not Detectd) Influenza Type B (PCR) Not Detected (Not Detectd) RSV (PCR) Not Detected (Not Detectd) SARS-CoV-2 (PCR) Detected A (Not Detectd) Disposition Clinical Impression: COVID-19 Disposition: LEFT AGAINST MEDICAL ADVICE Referrals: Regis Delcid DO [Primary Care Provider] - 1-2 days
== END 2024-01-21 12:36 | disposition left against medical advice (07) ==
LOC: EC 09:04
DX: U07.1 COVID-19 (principal); F17.290 Nicotine dependence, other tobacco product, uncomplicated; Z53.29 Procedure and treatment not carried out because of patient's decision for other reasons
CPT/HCPCS: 87636; 99284

== ENCOUNTER 2024-01-21 15:13 | Emergency (ER) | payer OTHER ==
[2024-01-21 15:44] VITALS: BP 100/56; PULSE 76; RESP 18; TEMP 97.5
--- NOTE | 2024-01-21 16:05 | ED ---
Weakness HPI - General Chief complaint: Weakness Stated complaint: weakness Time Seen by Provider: 01/21/24 15:21 Source: patient, RN notes reviewed Mode of arrival: ambulatory Limitations: no limitations - History of Present Illness Initial comments: 43-year-old male presents emergency department complaining of fever chills cough congestion body aches. Patient states he had felt well for last 3 days. Patient denies any sick contacts. Denies any GI symptoms no other complaints. - Related Data Previous Rx's Medication Instructions Recorded Lidocaine 5% Patch [Lidoderm 5% 1 patch TOPICAL DAILY PRN 7 Days 07/21/22 Patch] #7 patch Ibuprofen [Motrin] 800 mg PO Q8HR PRN #15 tab 01/25/23 Allergies Allergy/AdvReac Type Severity Reaction Status Date / Time No Known Allergies Allergy Verified 01/21/24 15:31 Review of Systems ROS Statement: Those systems with pertinent positive or pertinent negative responses have been documented in the HPI. ROS Other: All systems not noted in ROS Statement are negative. Past Medical History Past Medical History: No Reported History Additional Past Medical History / Comment(s): back pain History of Any Multi-Drug Resistant Organisms: None Reported Past Surgical History: No Surgical Hx Reported, Orthopedic Surgery Additional Past Surgical History / Comment(s): Glass removed from left hand 01/25/21 Past Psychological History: No Psychological Hx Reported Smoking Status: Vaper Past Alcohol Use History: Occasional Past Drug Use History: None Reported General Exam - General Exam Comments Initial Comments: General: [Well-developed well-nourished distress] HEENT: [Normocephalic/atraumatic, PERLL, pharynx erythema, swallowing well, EAC no erythema, no exudates, TM clear, no cervical lymph nodes] Neck: [Supple, nontender, trachea midline] Chest/Lungs: [Normal respirations, no signs of respiratory distress clear to auscultation bilaterally no wheezes, rales, rhonchi] Cardiac: [Regular rate and rhythm, normal S1-S2, no murmurs rubs or gallops ] Abdomen/GI: [Soft nontender, bowel sounds equal or quadrant x4, no guarding, no rebound no CVA tenderness] : [Deferred] Musculoskeletal: [Nontender, full range of motion, no edema, strength equal bilaterally] Skin: [Warmth, no rashes or lesions, no cyanosis or diaphoresis] Neurologic: [AAO x 3, CN 2-12 intact, ] Psychiatric: [Mood and affect normal, judgment normal] Course Vital Signs 01/21/24 15:29 Temperature 97.5 F L Pulse Rate 76 Respiratory 18 Rate Blood Pressure 100/56 O2 Sat by Pulse 100 Oximetry Medical Decision Making - Medical Decision Making Was pt. sent in by a medical professional or institution (, ANA LILIA, PITCHING COACH, urgent care, hospital, or correction...) When possible be specific @ -No Did you speak to anyone other than the patient for history (EMS, parent, family, police, friend...)? What history was obtained from this source @ -No Did you review nursing and triage notes (agree or disagree)? Why? @ -I reviewed and agree with nursing and triage notes Were old charts reviewed (outside hosp., previous admission, EMS record, old EKG, old radiological studies, urgent care reports/EKG's, correction records)? Report findings @ -Reviewed swab from earlier today positive COVID Differential Diagnosis (chest pain, altered mental status, abdominal pain women, abdominal pain men, vaginal bleeding, weakness, fever, dyspnea, syncope, headache, dizziness, GI bleed, back pain, seizure, CVA, palpatations, mental health, musculoskeletal)? @ -COVID 19, RSV, influenza, pneumonia, acute bronchitis, URI, this list is not all inclusive EKG interpreted by me (3pts min.). @ -None X-rays interpreted by me (1pt min.). @ -None done CT interpreted by me (1pt min.). @ -None done U/S interpreted by me (1pt. min.). @ -None done What testing was considered but not performed or refused? (CT, X-rays, U/S, labs)? Why? @ -None What meds were considered but not given or refused? Why? @ -None Did you discuss the management of the patient with other professionals (professionals i.e. ANA LILIA Perdomo, PITCHING COACH, lab, RT, psych nurse, social service coordinator, mines safety engineer, teacher, electronic warfare officer, hospice case manager)? Give summary @ -No Was smoking cessation discussed for >3mins.? @ -No Was critical care preformed (if so, how long)? @ -No Were there social determinants of health that impacted care today? How? (Homelessness, low income, unemployed, alcoholism, drug addiction, transportation, low edu. Level, literacy, decrease access to med. care, alf, rehab)? @ -No Was there de-escalation of care discussed even if they declined (Discuss DNR or withdrawal of care, Hospice)? DNR status @ -No What co-morbidities impacted this encounter? (DM, HTN, Smoking, COPD, CAD, Cancer, CVA, ARF, Chemo, Hep., AIDS, mental health diagnosis, sleep apnea, morbid obesity)? @ -None Was patient admitted / discharged? Hospital course, mention meds given and route, prescriptions, significant lab abnormalities, going to OR and other pertinent info. @ -Discharge patient is COVID-19 positive be discharged in stable condition (discussed Undiagnosed new problem with uncertain prognosis? @ -No Drug Therapy requiring intensive monitoring for toxicity (Heparin, Nitro, Insulin, Cardizem)? @ -No Were any procedures done? @ -No Diagnosis/symptom? @ -COVID 19 Acute, or Chronic, or Acute on Chronic? @ -Acute Uncomplicated (without systemic symptoms) or Complicated (systemic symptoms)? @ -Uncomplicated Side effects of treatment? @ -No Exacerbation, Progression, or Severe Exacerbation? @ -No Poses a threat to life or bodily function? How? (Chest pain, [place], [place], pneumonia, PE, COPD, DKA, ARF, appy, cholecystitis, CVA, Diverticulitis, Homicidal, Suicidal, threat to staff... and all critical care pts) @ -No Disposition Clinical Impression: COVID-19 Disposition: HOME SELF-CARE Condition: Stable Instructions (If sedation given, give patient instructions): COVID-19 (Coronavirus Disease 2019) (ED) Additional Instructions: Please return to the Emergency Department if symptoms worsen or any other concerns. Is patient prescribed a controlled substance at d/c from ED?: No Referrals: Regis Delcid DO [Primary Care Provider] - 1-2 days Time of Disposition: 16:05
== END 2024-01-21 16:27 | disposition home or self-care (01) ==
LOC: EC 15:13
DX: U07.1 COVID-19 (principal); F17.290 Nicotine dependence, other tobacco product, uncomplicated
CPT/HCPCS: 99285

== ENCOUNTER 2024-02-04 00:14 | Emergency (ER) | payer OTHER ==
[2024-02-04 00:39] VITALS: RESP 18; TEMP 97.9
--- NOTE | 2024-02-04 01:27 | XR ---
EXAM: XR Chest, 2 Views CLINICAL HISTORY: ITS.REASON XR Reason: SOB TECHNIQUE: Frontal and lateral views of the chest. COMPARISON: CXR December 17, 2021. FINDINGS: Lungs: Unremarkable. No consolidation. Pleural space: Unremarkable. No pneumothorax. Heart: Unremarkable. No cardiomegaly. Mediastinum: Unremarkable. Normal mediastinal contour. Bones/joints: Unremarkable. No acute fracture. IMPRESSION: Normal chest x-rays.
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
[2024-02-04] MEDS: BACITRACIN ZINC 500 UNIT/GM OINT 28.4 GM TUBE TOPICAL ONE (02:29)
[2024-02-04 03:04] VITALS: BP 112/67; PULSE 86
== END 2024-02-04 02:29 | disposition home or self-care (01) ==
LOC: EC 00:14
DX: T22.112A Burn of first degree of left forearm, initial encounter (principal); F17.290 Nicotine dependence, other tobacco product, uncomplicated; X08.8XXA Exposure to other specified smoke, fire and flames, initial encounter
CPT/HCPCS: 71046; 93005; 99285